=== PATIENT | female | born 1985 | race American Indian/Alaskan Native ===

== ENCOUNTER 2016-11-22 16:37 | Inpatient (IN) | payer BC ==
[2016-11-22 17:37] LABS: Basophils % (Auto) 0.6 % (0.0-1.8); Eosinophils % (Auto) 1.5 % (0.0-4.3); Hematocrit 32.8 % (30.3-42.9); Hemoglobin 10.4 gm/dl (10.1-14.3); Mean Corpuscular HGB Conc 32 % (30-34); Mean Corpuscular Hemoglobin 24 pg (28-32); Mean Corpuscular Volume 75 fl (79-97); Platelet Count 163 K/mm3 (140-440); Red Blood Count 4.37 M/mm3 (3.65-5.03); Red Cell Distribution Width 16.3 % (13.2-15.2); White Blood Count 7.8 K/mm3 (4.5-11.0)
--- NOTE | 2016-11-22 18:00 | Cat Scan Report ---
FINAL REPORT PROCEDURE: CT HEAD/BRAIN WO CON TECHNIQUE: Computerized tomography of the head was performed without contrast material. HISTORY: dizziness, weakness COMPARISON: No prior studies are available for comparison. FINDINGS: Brain: Brain density appears normal. No evidence of intracranial hemorrhage. No parenchymal hemorrhage, mass lesions or mass effect are seen. No abnormal extraxial fluid collects or masses are seen. Ventricles: Ventricles are normal size and are midline. Bone Windows: No evidence of skull fracture. Paranasal sinuses: Clear Mastoid air cells: Clear IMPRESSION: Negative exam.
[2016-11-22 18:01] LABS: Anion Gap 17 mmol/L; Blood Urea Nitrogen 9 mg/dL (7-17); Carbon Dioxide 25 mmol/L (22-30); Chloride 100.3 mmol/L (98-107); Glucose 87 mg/dL (65-100); Potassium 4.3 mmol/L (3.6-5.0); Sodium 138 mmol/L (137-145)
[2016-11-22] MEDS ORDERED: FIORICET PO ONE (22:05)
[2016-11-22] MEDS ORDERED: ASPIRIN PO ONE (22:05)
--- NOTE | 2016-11-22 22:13 | Emergency Department Report ---
HPI - General Chief Complaint: Weakness Time Seen by Provider: 11/22/16 21:56 - HPI HPI: Room 23 The patient is a 31-year-old female presenting with a chief complaint of dizziness and paresthesia. Patient states her symptoms began 2 days ago with dizziness causing her to feel off balance to the point where she had to hold onto the wall at times felt as though the tidwell was spinning. The patient states today she had 2 episodes of dysarthria lasting between one and 3 minutes. Yesterday the patient developed intermittent left facial and left upper extremity numbness. Patient plays of pressure in the back of her head. Patient went to an urgent care facility today where she was told her left wares sorter was weaker than the right and subsequently was sent to the ED Location: [see above] Duration: [see above] Quality: Dizziness, numbness Severity: Moderate Modifying factors: [see above] Context: [see above] Mode of transportation: [not driving] ED Past Medical Hx - Past Medical History Previous Medical History?: Yes Hx Asthma: Yes Additional medical history: bronchitis / aseptic meningitis - Surgical History Past Surgical History?: Yes Additional Surgical History: breast reduction 2003 - Family History Family history: no significant - Social History Smoking Status: Former Smoker (none 2.5 years) Substance Use Type: None (denies illicit drug use), Alcohol (occasional) - Medications Home Medications: Home Medications Medication Instructions Recorded Confirmed Last Taken Type No Known Home Medications [No 11/22/16 11/22/16 Unknown History Reported Home Medications] ED Review of Systems ROS: Stated complaint: URGENT CARE, POSSIBLE STROKE Other details as noted in HPI Comment: All other systems reviewed and negative Constitutional: denies: chills, fever Eyes: denies: eye pain, eye discharge, vision change ENT: denies: ear pain, throat pain Respiratory: denies: cough, shortness of breath, wheezing Cardiovascular: denies: chest pain, palpitations Endocrine: no symptoms reported Gastrointestinal: denies: abdominal pain, nausea, diarrhea Genitourinary: denies: urgency, dysuria, discharge Musculoskeletal: denies: back pain, joint swelling, arthralgia Skin: denies: rash, lesions Neurological: headache, paresthesias, vertigo Psychiatric: denies: anxiety, depression Hematological/Lymphatic: denies: easy bleeding, easy bruising Physical Exam - Physical Exam Vital Signs: Vital Signs 09/07/17 16:49 Temperature 98.5 F Pulse Rate 61 Respiratory 16 Rate Blood Pressure 149/94 O2 Sat by Pulse 100 Oximetry Physical Exam: GENERAL: The patient is well-developed well-nourished female lying on stretcher not appearing to be in acute distress. [] HEENT: Normocephalic. Atraumatic. Extraocular motions are intact. Patient has moist mucous membranes. No nystagmus noted NECK: Supple. Trachea midline CHEST/LUNGS: Clear to auscultation. There is no respiratory distress noted. HEART/CARDIOVASCULAR: Regular. There is no tachycardia. There is no gallop rub or murmur. ABDOMEN: Abdomen is soft, nontender. Patient has normal bowel sounds. There is no abdominal distention. SKIN: There is no rash. There is no edema. There is no diaphoresis. NEURO: The patient is awake, alert, and oriented. The patient is cooperative. Cranial nerves II through XII grossly intact, no drift. Left wares sorter 4+/5, right wares sorter 5+/5. Moves all extremity is well. The patient has normal speech MUSCULOSKELETAL: There is no evidence of acute injury. ED Course Vital Signs 11/22/16 16:49 Temperature 98.5 F Pulse Rate 61 Respiratory 16 Rate Blood Pressure 149/94 O2 Sat by Pulse 100 Oximetry ED Medical Decision Making - Lab Data Result diagrams: 11/22/16 17:21 11/22/16 17:21 Laboratory Tests 11/22/16 11/22/16 17:21 17:21 WBC 7.8 RBC 4.37 Hgb 10.4 Hct 32.8 MCV 75 L MCH 24 L MCHC 32 RDW 16.3 H Plt Count 163 Lymph % (Auto) 22.9 [place] % (Auto) 5.3 Eos % (Auto) 1.5 Baso % (Auto) 0.6 Lymph # 1.8 [place] # 0.4 Eos # 0.1 Baso # 0.0 Seg Neutrophils % 69.7 Seg Neutrophils # 5.4 Sodium 138 Potassium 4.3 Chloride 100.3 Carbon Dioxide 25 Anion Gap 17 BUN 9 Creatinine 0.6 L Estimated GFR > 60 BUN/Creatinine Ratio 15.00 Glucose 87 Calcium 9.0 - EKG Data -: EKG Interpreted by [place] EKG shows normal: sinus rhythm Rate: bradycardia (57 bpm) - EKG Data When compared to previous EKG there are: previous EKG unavailable - Radiology Data Radiology results: report reviewed (CT head), image reviewed (CT head) CT head (read by radiologist)-negative exam - Differential Diagnosis TIAs, complex migraines, CVA Critical care attestation.: If time is entered above; I have spent that time in minutes in the direct care of this critically ill patient, excluding procedure time. ED Disposition Clinical Impression: TIA (transient ischemic attack) Disposition: OP ADMIT IP TO THIS HOSP Is pt being admited?: Yes Does the pt Need Aspirin: Yes Condition: Fair Referrals: PRIMARY CARE, [Primary Care Provider] - 3-5 Days Time of Disposition: 22:19 (hospitalist notified)
[2016-11-22] MEDS ORDERED: MILK OF MAGNESIA PO PRN (23:29)
[2016-11-22] MEDS ORDERED: MORPHINE IV PRN (23:29)
[2016-11-22] MEDS ORDERED: ZOFRAN IV PRN (23:29)
[2016-11-22] MEDS ORDERED: ALUM-MAG HYDROX-SIMETH 200-200-20MG/5ML PO PRN (23:29)
[2016-11-22] MEDS ORDERED: PROVENTIL IH PRN (23:29)
[2016-11-22] MEDS ORDERED: NORCO 5/325 PO PRN (23:29)
[2016-11-22] MEDS ORDERED: TYLENOL PO PRN (23:29)
[2016-11-22] MEDS ORDERED: DULCOLAX PR PRN (23:29)
[2016-11-22] MEDS ORDERED: AMBIEN PO PRN (23:29)
--- NOTE | 2016-11-22 23:38 | History and Physical Report ---
History of Present Illness Date of examination: 11/22/16 Chief complaint: She did and slurred speech blurred vision and left-sided face and arm tingling numbness History of present illness: The patient is a 31-year-old female presenting with a chief complaint of dizziness and paresthesia. Patient states her symptoms began 2 days ago with dizziness causing her to feel off balance to the point where she had to hold onto the wall at times felt as though the tidwell was spinning. The patient states today she had 2 episodes of dysarthria lasting between one and 3 minutes. Yesterday the patient developed intermittent left facial and left upper extremity numbness. Patient plays of pressure in the back of her head. Patient went to an urgent care facility today where she was told her left dedicated owner operator was weaker than the right and subsequently was sent to the ED Past History Past Medical History: No medical history Past Surgical History: No surgical history Social history: no significant social history Family history: no significant family history Medications and Allergies Allergies Allergy/AdvReac Type Severity Reaction Status Date / Time No Known Allergies Allergy Verified 11/23/16 00:24 Home Medications Medication Instructions Recorded Confirmed Last Taken Type No Known Home Medications [No 11/22/16 11/22/16 Unknown History Reported Home Medications] Active Meds: Active Medications Acetaminophen (Tylenol) 650 mg PO Q4H PRN PRN Reason: Pain MILD(1-3)/Fever >100.5/BERG Acetaminophen/Butalbital/Caffeine (Fioricet) 1 tab PO Q4H PRN PRN Reason: Headache Acetaminophen/Hydrocodone Bitart (Banks 5/325) 2 each PO Q6H PRN PRN Reason: Pain, Moderate (4-6) Al Hydrox/Mg Hydrox/Simethicone (Alum-Mag Hydrox-Simeth [phone]/5ml) 30 ml PO Q4H PRN PRN Reason: Indigestion Albuterol (Proventil) 2.5 mg IH Q4HRT PRN PRN Reason: Shortness Of Breath Bisacodyl (Dulcolax) 10 mg NC QDAY PRN PRN Reason: Constipation unrelieved by MOM Enoxaparin Sodium (Lovenox) 40 mg SUB-Q QDAY CORIE Famotidine (Pepcid) 20 mg PO BID CORIE Sodium Chloride (Nacl 0.9% 1000 Ml) 1,000 mls @ 100 mls/hr IV DIRECT CORIE Magnesium Hydroxide (Milk Of Magnesia) 30 ml PO Q4H PRN PRN Reason: Constipation Morphine Sulfate (Morphine) 2 mg IV Q4H PRN PRN Reason: Pain, Moderate (4-6) Ondansetron HCl (Zofran) 4 mg IV Q8H PRN PRN Reason: N/V unrelieved by Reglan Zolpidem Tartrate (Ambien) 5 mg PO QHS PRN PRN Reason: Insomnia Review of Systems All systems: negative (all 14 systems reviewed and found to be negative except as mentioned in HPI) Exam - Physical Exam Narrative exam: GENERAL: The patient is well-developed well-nourished female lying on stretcher not appearing to be in acute distress. [] HEENT: Normocephalic. Atraumatic. Extraocular motions are intact. Patient has moist mucous membranes. No nystagmus noted NECK: Supple. Trachea midline CHEST/LUNGS: Clear to auscultation. There is no respiratory distress noted. HEART/CARDIOVASCULAR: Regular. There is no tachycardia. There is no gallop rub or murmur. ABDOMEN: Abdomen is soft, nontender. Patient has normal bowel sounds. There is no abdominal distention. SKIN: There is no rash. There is no edema. There is no diaphoresis. NEURO: The patient is awake, alert, and oriented. The patient is cooperative. Cranial nerves II through XII grossly intact, strength is 5 out of 5 all 4 extremities. Moves all extremity is well. The patient has normal speech MUSCULOSKELETAL: There is no evidence of acute injury. Psychiatric - appropriate. Mood and affect Vascular system - no lymphadenopathy distal pulses 2+ bilaterally - Constitutional Vitals: Temp Pulse Resp BP Pulse Ox 98.5 F 70 18 121/49 100 11/22/16 16:49 11/22/16 22:22 11/22/16 22:22 11/22/16 22:22 11/22/16 22:22 Results - Labs CBC & Chem 7: 11/22/16 17:21 11/22/16 17:21 Labs: Laboratory Last Values WBC 7.8 K/mm3 (4.5-11.0) 11/22/16 17:21 RBC 4.37 M/mm3 (3.65-5.03) 11/22/16 17:21 Hgb 10.4 gm/dl (10.1-14.3) 11/22/16 17:21 Hct 32.8 % (30.3-42.9) 11/22/16 17:21 MCV 75 fl (79-97) L 11/22/16 17:21 MCH 24 pg (28-32) L 11/22/16 17:21 MCHC 32 % (30-34) 11/22/16 17:21 RDW 16.3 % (13.2-15.2) H 11/22/16 17:21 Plt Count 163 K/mm3 (140-440) 11/22/16 17:21 Lymph % (Auto) 22.9 % (13.4-35.0) 11/22/16 17:21 [place] % (Auto) 5.3 % (0.0-7.3) 11/22/16 17:21 Eos % (Auto) 1.5 % (0.0-4.3) 11/22/16 17:21 Baso % (Auto) 0.6 % (0.0-1.8) 11/22/16 17:21 Lymph # 1.8 K/mm3 (1.2-5.4) 11/22/16 17:21 [place] # 0.4 K/mm3 (0.0-0.8) 11/22/16 17:21 Eos # 0.1 K/mm3 (0.0-0.4) 11/22/16 17:21 Baso # 0.0 K/mm3 (0.0-0.1) 11/22/16 17:21 Seg Neutrophils % 69.7 % (40.0-70.0) 11/22/16 17:21 Seg Neutrophils # 5.4 K/mm3 (1.8-7.7) 11/22/16 17:21 Sodium 138 mmol/L (137-145) 11/22/16 17:21 Potassium 4.3 mmol/L (3.6-5.0) 11/22/16 17:21 Chloride 100.3 mmol/L (98-107) 11/22/16 17:21 Carbon Dioxide 25 mmol/L (22-30) 11/22/16 17:21 Anion Gap 17 mmol/L 11/22/16 17:21 BUN 9 mg/dL (7-17) 11/22/16 17:21 Creatinine 0.6 mg/dL (0.7-1.2) L 11/22/16 17:21 Estimated GFR > 60 ml/min 11/22/16 17:21 BUN/Creatinine Ratio 15.00 % 11/22/16 17:21 Glucose 87 mg/dL (65-100) 11/22/16 17:21 Calcium 9.0 mg/dL (8.4-10.2) 11/22/16 17:21 Assessment and Plan Assessment and plan: Assessment and plan - * Left side and the tingling numbness weakness / paresthesias - rule out TIA * Complicated neurological migraine * Headache Plan - The patient to medical floor with telemetry for 24-hour observation When necessary Fioricet for her migraine Aspirin 325 mg daily Check lipid panel and TSH MRI brain to rule out TIA versus CVA Monitor CBC electrolytes replace electrolytes when necessary as per protocol DVT and GI Prophylaxis as ordered monitor and follow the patient closely VTE prophylaxis?: Chemical, Mechanical Plan of care discussed with patient/family: Yes
[2016-11-23] MEDS: NACL 0.9% 1000 ML 1,000 ML IV SCH ×2 (02:25→19:42)
[2016-11-23 07:26] LABS: Basophils % (Auto) 0.4 % (0.0-1.8); Eosinophils % (Auto) 2.3 % (0.0-4.3); Hematocrit 32.7 % (30.3-42.9); Hemoglobin 10.5 gm/dl (10.1-14.3); Mean Corpuscular HGB Conc 32 % (30-34); Mean Corpuscular Volume 74 fl (79-97); Platelet Count 140 K/mm3 (140-440); White Blood Count 5.7 K/mm3 (4.5-11.0)
[2016-11-23 07:37] LABS: Mean Corpuscular Hemoglobin 24 pg (28-32)
--- NOTE | 2016-11-23 08:38 | Admit Criteria Form ---
Admission Criteria Documentation: NEUROLOGY GRG Clinical Indications for Admission to Inpatient Care (Place ' X' for any and all applicable criteria): Hospital admission is needed for appropriate care of the patient because of 1 or more of the following: [ ]I. Encephalitis [ ]II. Severe DATA REDUCTION TECHNICIAN infections indicated by 1 or more of the following(1)(2)(3) : [ ]a) Intracranial abscess [ ]b) Spinal abscess or myelitis [ ]c) Tuberculous or other nonbacterial, nonviral DATA REDUCTION TECHNICIAN infection(8) [ ]III. Vasculitis and 1 or more of the following(14)(15): []a) Altered mental status that is severe or persistent or other acute neurologic change []b) Psychosis []c) Seizure [ ]IV. Status epilepticus or repetitive seizures not controlled with emergent treatment [A] (7)(8) [ ]V. Altered mental status that is severe or persistent [ ]. Transient alteration in consciousness with high-risk etiology; examples include (12)(13): [ ]a) Cardiovascular source [ ]b) Cataplexy [ ]VII. Cerebral aneurysm requiring ANY ONE of the following(14): [ ]a) IV antihypertensives or vasoactive agents [ ]b) Sedation and analgesia for suspected leak [ ]c) Need for external ventricular drainage and cerebral perfusion pressure monitoring [ ]d) Emergent evaluation to determine need for surgical clipping or endovascular coiling by interventional radiology. If surgery is required ( Also use Craniotomy, Supratentorial, for Surgery of Bleeding Intracranial Aneurysm (for bleeding aneurysm) or Craniotomy, Supratentorial (for nonbleeding aneurysm) as appropriate. [ ]VIII. New-onset severe neurologic symptom requiring inpatient care indicated by ANY ONE of the following: [ ]a) Aphasia(15) [ ]b) Weakness (grade 3 or less) [ ]c) Paralysis (eg, hemiplegia) [ ]d) Spasticity(16) [ ]e) Dystonia [ ]e) Ataxia(17) [ ]f) Amnesia(18) [ ]g) Involuntary movements(19) [ ]h) Vertigo [ ] Visual loss [ ]i) Other severe neurologic finding (eg, papilledema, mass effect on imaging, myoclonus not treatable at alternative level of care (eg, observation care) [ ]IX. Guillain-[place] syndrome(20) [ ]X. Myasthenia gravis crisis or inpatient monitoring need as indicated by 1 or more of the following(21): [ ]a) Intensive treatment (eg, course of plasmapheresis) with inadequate outpatient situation to monitor patients status [ ]b) Inadequate airway protection [ ]c) Respiratory insufficiency requiring intubation or inpatient. monitoring [ ]d) Progressive dysphagia with failure to thrive [ ]XI. Multiple sclerosis or other acute demyelinating disease requiring inpatient care as indicated by 1 or more of the following (22)(23): [ ]a) Acute severe deterioration requiring inpatient treatment (eg, IV steroids, plasmapheresis, close observation) [ ]b) Acute complication requiring inpatient care (eg, sepsis, severe decubitus, aspiration) [ ]XII.Parkinson disease requiring inpatient care (Also use Optimal Recovery Care Criteria or General Recovery Criteria as appropriate) indicated by 1 or more of the following(25): [ ]a) Infection (eg, aspiration pneumonia) not treatable at alternative level of care [ ]b Dehydration that is severe or persistent [ ]c) Life-threatening agitation or psychotic behavior not treatable on emergency, observation care, or alternative level (eg, residential) basis [ ]d) Severe medication withdrawal effects (eg, freezing, neuroleptic malignant syndrome) not responsive to emergency and observation care treatment ( as appropriate) [ ]e) Other severe manifestation not treatable at alternative level of care [ ]XII. Amyotrophic lateral sclerosis with inpatient care needs as indicated by ANY ONE of the following(26): [ ]a) Acute complications (eg, aspiration pneumonia, sepsis ) requiring inpatient care ( see other optimal Recovery Guideline as appropriate) [ ]b) Dehydration that is severe persistent AND artificial support desired [ ]c) Inadequate airway protection AND artificial support desired [ ]d) Severe ventilatory insufficiency AND artificial support desired [ ]XIII. Myasthenia gravis crisis or inpatient monitoring need as indicated by 1 or more of the following(21): [] a) Inadequate airway protection []b) Respiratory insufficiency requiring intubation or inpatient monitoring []c) Progressive dysphagia with failure to thrive []d) Intensive treatment (e.g., course of plasmapheresis) with inadequate outpatient situation to monitor patients status [ ]XIV. Multiple sclerosis or other acute demyelinating disease requiring inpatient care indicated by 1 or more of the following[C](36)(43)(44)(45)(46): []a) Acute severe deterioration requiring inpatient treatment (eg, IV steroids, plasmapheresis, close observation) []b) Acute complication requiring inpatient care (eg, sepsis, severe decubitus, aspiration) [ ]XV. Intracranial hypertension (e.g., pseudotumor cerebri) requiring inpatient care (e.g., acute visual loss, inadequate oral intake) (47)(48)(49) [ ]XVI. Parkinson disease requiring inpatient care (Also use Optimal Recovery Care Criteria or General Recovery Criteria as appropriate) indicated by 1 or more of the following(25): [] a) Infection (e.g., aspiration pneumonia) not treatable at alternative level of care []b) Volume depletion not responsive to emergency and observation care treatment (as appropriate) []c) Life-threatening agitation or psychotic behavior not treatable on emergency, observation care, or alternative level (e.g., residential) basis []d) Severe medication withdrawal effects (e.g., freezing, neuroleptic malignant syndrome) not responsive to emergency and observation care treatment (as appropriate) []e) Other severe manifestation not treatable at alternative level of care [ ]XVII. Amyotrophic lateral sclerosis with inpatient care needs as indicated by1 or more of the following(42): []a) Acute complications (eg, aspiration pneumonia, sepsis) requiring inpatient care (see other Optimal Recovery Guideline or General Recovery Guideline as appropriate) []b) Dehydration that is severe or persistent AND artificial support desired []c) Inadequate airway protection AND artificial support desired []d) Severe ventilatory insufficiency AND artificial support desired [ ]XVIII. Severe myopathy, neuropathy, or other neuromuscular disease indicated by 1 or more of the following(42)(52)(53)(54): []a ) New-onset severe diffuse weakness (eg, strength 3/5 or less) []b) Severe dysphagia []c) Dyspnea at rest or with minimal exertion (new) []d) Inadequate airway protection []e) Inadequate ventilation indicated by 1 or more of the following : i) Partial pressure of carbon dioxide greater than 44 mm Hg ( 5.9 kPa) (new) ii) Reduced peak expiratory flow rate (new) iii) Vital capacity less than 50% of predicted (less than 15 mL/kg) iv) Peak inspiratory force less negative than -30 cm H2O (- 2942 Pa) [ ]XVII.Complications of congenital or degenerative disease (eg, infection, seizures, dehydration, injury) not responsive to emergency and observation care treatment (as appropriate ) [C](16)(29)(30) [ ]XVIII.Suspected or confirmed nerve or muscle toxic injury, including ANY ONE of the following: [ ]a) Rhabdomyolysis(31) i) Acute renal failure ii) Dehydration that is severe or persistent iii) Altered mental status that is severe or persistent iv) Electrolyte abnormality that remains after emergency or observation level care ( as appropriate) [ ]b) Botulism(32) [ ]c) Other severe toxin-induced sign or symptom [ ]XIX. Neurologic trauma requiring inpatient treatment (medical) indicated by ANY ONE of the following(33)(34): [ ]a) Vital signs or neurologic signs more frequently than every 4 hours [ ]b) Hyperosmolar therapy [ ]c) Respiratory monitoring [ ]d) Intracranial pressure monitoring and treatment [ ]e) Stabilization and immobilization device placement (eg, braces, body jacket) [ ]f) Intubation & mechanical ventilation for airway protection or therapeutic hyperventilation [ ]g) Other treatment or monitoring needed that requires inpatient level of care [ ]XX.Complications of neurologic devices (eg, ventricular shunt, neurostimulator) requiring 1 or more of the following(35)(36): [ ]a) IV antibiotics with monitoring while awaiting culture results [ ]b) Monitoring for hydrocephalus [X]XXI. Neurology condition symptom, or finding for which emergency and observation care have failed or are not considered appropriate. See General Criteria: Observation Care ISC, General Admission Criteria GRG, or Pediatric General Admission Criteria GRG guideline as appropriate. The original [facility] content created by [facility] has been revised. The portions of the content which have been revised are identified through the use of italic text or in bold, and [facility] has neither reviewed nor approved the modified material. All other unmodified content is copyright [facility] Please see references footnoted in the original [facility] edition 2016 Admission Criteria Met: Yes
[2016-11-23] MEDS: ASPIRIN PO SCH (09:35)
[2016-11-23] MEDS: PEPCID PO SCH (09:36)
[2016-11-23] MEDS: LOVENOX SUB-Q SCH (09:36)
[2016-11-23 11:36] LABS: Alanine Aminotransferase 9 units/L (7-56); Albumin 3.7 g/dL (3.9-5); Albumin/Globulin Ratio 1.5 %; Alkaline Phosphatase 35 units/L (35-129); Anion Gap 16 mmol/L; BUN/Creatinine Ratio 13.33; Blood Urea Nitrogen 8 mg/dL (7-17); Calcium 8.5 mg/dL (8.4-10.2); Carbon Dioxide 25 mmol/L (22-30); Chloride 104.5 mmol/L (98-107); Glucose 82 mg/dL (65-100); Potassium 4.4 mmol/L (3.6-5.0); Sodium 141 mmol/L (137-145); Total Protein 6.2 g/dL (6.3-8.2)
[2016-11-23] MEDS ORDERED: XANAX PO PRN (11:44)
[2016-11-23] MEDS ORDERED: VALIUM PO PRN (11:44)
[2016-11-23] MEDS ORDERED: FLUOXETINE HCL 10 MG PO SCH (11:45)
--- NOTE | 2016-11-23 14:31 | Magnetic Resonance Report ---
MRI BRAIN WITHOUT CONTRAST INDICATION: Acute alerted mental status with dysphagia. Evaluate for CVA. COMPARISON: Yesterday's head CT. FINDINGS: Noncontrast multiplanar and multisequence MRI of the brain demonstrates normal ventricles and sulci without acute infarct, hemorrhage, mass effect or midline shift. No abnormal extra-axial masses or fluid collections. Normal major intracranial vascular flow voids. Normal posterior fossa structures with symmetric seventh and eighth nerve complexes. Symmetric, grossly unremarkable eye globes. Mild leftward nasal septal bowing. Slight ethmoid sinusitis. Clear remainder imaged paranasal sinuses and mastoid air cells. Normal midline structures without evidence of Chiari malformation. CONCLUSION: No acute intracranial MRI abnormality, as described. Thank you for the opportunity to participate in this patient's care.
--- NOTE | 2016-11-23 14:42 | Consultation ---
History of Present Illness Consult date: 11/23/16 Requesting physician: ALFRED ASTORGA Reason for Consult: TIA History of present illness: Neurology consultation note: 11/23/16 Ms. Reyes is a 31-year-old -Maltese female patient admitted sometime yesterday when she came to the hospital with a history of headaches and numbness of the left side of the face and the left arm as well as the right upper extremity. In addition she had also noted couple of episodes of altered speech and this prompted her to go to the emergency room for possible stroke. Neurology consultation requested to assess the situation. CT brain done in the emergency room was negative. This latency says that the problem began November 18 when she was attending a hindu ceremony and noted blurred vision in both eyes and had slight difficulty focusing with the eyes. She had this problem off and on with some dizziness for couple of days. 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 She is still went through her work as usual. Again she had slurred speech. Sometime yesterday for the first time she noted numb feeling in the left face and the left arm and the onset of headache in a generalized fashion. Occasionally she would have slight imbalance and vertigo. In the ER she was noted to have elevated blood pressure but otherwise she has no known prior history of hypertension. She never had such symptoms in her life before. No known prior history of migraines. No falls or trauma lately. She did have a mild fever about a week ago but resolved within 24 hours. Currently she denies any double vision but does have blurred vision and mild headache. Still feels tingly and numb in the left arm and occasionally in the right arm. She has no diabetes hypertension hyperlipidemia or heart disease. She quit smoking several years ago. No alcohol or street drug abuse. Family history significant for the fact that her mother, mother's sister and maternal grandmother all have migraines. Patient's older brother also has migraine. She has no known allergies since she has not been on any prescription medications at home. She denies being on control pills. Gen. exam: Blood pressure currently 116/80, no cranial or carotid bruit, no neck stiffness. No edema of the feet and dorsalis pedis palpable. No skin rash. Central nervous system exam: Higher cortical functions: Fully alert and well communicative right-handed person, normal speech memory and intelligence. No aphasia or dysarthria. Cranial nerves: Optic fundi not examined. Pupils 3 mm equal and reactive. Full eye movements, very questionable few beats of nystagmus on left lateral gaze only. No ptosis of the eyelids. No facial asymmetry or weakness, hearing completely normal. Tongue and palate normal. Motor system: Normal tone and strength all extremities except for a questionable minimal left arm drift and left supervisory lifeguard weakness. No involuntary movements. Gait appeared to be unremarkable. Sensory exam: Normal Reflexes: Bilaterally plus symmetrical and plantars downgoing. Impression: #1. This patient does have very subtle left arm drift along with subjective numb feeling in the left arm and blurred vision and headaches. While the entire history and clinical findings seem to favor "migraine syndrome", a right hemispheric small stroke or TIA should be excluded. I wonder if this is all "migrainous TIA" Or a "stroke mimic". Interestingly she does not have any prior history of migraines. Recommendation: MRI of the brain, MRA of the neck and brain, echocardiogram, carotid Doppler studies etc. Aspirin 81 mg daily if MRI conclusive for an acute infarct. Otherwise clinical observation for now. Patient may follow up with outpatient neurology after discharge. Thank you very much for this consultation Gideon Esparza M.D./ Neurology Past History Past Medical History: No medical history Past Surgical History: No surgical history Social history: no significant social history Family history: no significant family history Medications and Allergies Allergies Allergy/AdvReac Type Severity Reaction Status Date / Time No Known Allergies Allergy Verified 11/23/16 00:24 Home Medications Medication Instructions Recorded Confirmed Last Taken Type ALPRAZolam [Xanax TAB] 5 mg PO BID PRN 11/23/16 11/23/16 11/15/16 History 5 Diazepam Tab [Valium] 5 mg PO HS PRN 11/23/16 11/23/16 11/18/16 History FLUoxetine HCL [FLUoxetine] 10 mg PO BID 11/23/16 11/23/16 Unknown History Active Meds: Active Medications Acetaminophen (Tylenol) 650 mg PO Q4H PRN PRN Reason: Pain MILD(1-3)/Fever >100.5/BERG Acetaminophen/Butalbital/Caffeine (Fioricet) 1 tab PO Q4H PRN PRN Reason: Headache Acetaminophen/Hydrocodone Bitart (Newcomb 5/325) 2 each PO Q6H PRN PRN Reason: Pain, Moderate (4-6) Last Admin: 11/23/16 02:23 Dose: 2 each Al Hydrox/Mg Hydrox/Simethicone (Alum-Mag Hydrox-Simeth [phone]/5ml) 30 ml PO Q4H PRN PRN Reason: Indigestion Albuterol (Proventil) 2.5 mg IH Q4HRT PRN PRN Reason: Shortness Of Breath Alprazolam (Xanax) 5 mg PO BID PRN PRN Reason: Anxiety Aspirin (Aspirin) 325 mg PO QDAY [facility] Last Admin: 11/23/16 09:35 Dose: 325 mg Bisacodyl (Dulcolax) 10 mg IN QDAY PRN PRN Reason: Constipation unrelieved by MOM Diazepam (Valium) 5 mg PO HS PRN PRN Reason: Anxiety Enoxaparin Sodium (Lovenox) 40 mg SUB-Q QDAY [facility] Last Admin: 11/23/16 09:36 Dose: 40 mg Famotidine (Pepcid) 20 mg PO BID [facility] Last Admin: 11/23/16 09:36 Dose: 20 mg Fluoxetine HCl (Prozac) 10 mg PO BID [facility] Sodium Chloride (Nacl 0.9% 1000 Ml) 1,000 mls @ 100 mls/hr IV DIRECT [facility] Last Admin: 11/23/16 02:25 Dose: 100 mls/hr Magnesium Hydroxide (Milk Of Magnesia) 30 ml PO Q4H PRN PRN Reason: Constipation Morphine Sulfate (Morphine) 2 mg IV Q4H PRN PRN Reason: Pain, Moderate (4-6) Ondansetron HCl (Zofran) 4 mg IV Q8H PRN PRN Reason: N/V unrelieved by Reglan Zolpidem Tartrate (Ambien) 5 mg PO QHS PRN PRN Reason: Insomnia Last Admin: 11/23/16 02:24 Dose: 5 mg Physical Examination - Vital Signs Vital Signs: Vital Signs Temp Pulse Resp BP Pulse Ox 98.5 F 61 16 149/94 100 11/22/16 16:49 11/22/16 16:49 11/22/16 16:49 11/22/16 16:49 11/22/16 16:49 Results - Laboratory Findings CBC and BMP: 11/23/16 06:45 11/23/16 10:42 Abnormal Lab Findings: Abnormal Labs 11/23/16 11/23/16 06:45 10:42 MCV 74 L MCH 24 L RDW 16.0 H [place] % (Auto) 7.8 H Creatinine 0.6 L Total Protein 6.2 L Albumin 3.7 L
--- NOTE | 2016-11-23 14:53 | Discharge Summary ---
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 Time called:: 11:00 Primary care physician: LIAISON OFFICER Hospitalization Condition: Fair Hospital course: The patient is a 31-year-old female presenting with a chief complaint of dizziness and paresthesia. Patient states her symptoms began 2 days ago with dizziness causing her to feel off balance to the point where she had to hold onto the wall at times felt as though the tidwell was spinning. The patient states today she had 2 episodes of dysarthria lasting between one and 3 minutes. Yesterday the patient developed intermittent left facial and left upper extremity numbness. Patient plays of pressure in the back of her head. Patient went to an urgent care facility today where she was told her left conductor freight was weaker than the right and subsequently was sent to the ED 2d echo will be done as outpt Discharge Diagnosis: Left sided tingling numbness weakness/paresthesias - ruled out TIA Complicated neurological migraine Disposition: DC-01 TO HOME OR SELFCARE Time spent for discharge: 32 minutes Core Measure Documentation - Palliative Care Palliative Care/ Comfort Measures: Not Applicable - Core Measures Any of the following diagnoses?: none Exam - Constitutional Vitals: Temp Pulse Resp BP Pulse Ox 98.0 F 50 L 20 103/46 100 11/23/16 07:50 11/23/16 07:50 11/23/16 07:50 11/23/16 07:50 11/23/16 10:00 General appearance: Present: no acute distress, well-nourished - EENT Eyes: Present: PERRL ENT: hearing intact, clear oral mucosa - Neck Neck: Present: supple, normal ROM - Respiratory Respiratory effort: normal Respiratory: bilateral: CTA - Cardiovascular Heart Sounds: Present: S1 & S2. Absent: rub, click - Extremities Extremities: pulses symmetrical, No edema Peripheral Pulses: within normal limits - Abdominal General gastrointestinal: Present: soft, non-tender, non-distended, normal bowel sounds - Integumentary Integumentary: Present: clear, warm, dry - Musculoskeletal Musculoskeletal: gait normal, strength equal bilaterally - Psychiatric Psychiatric: appropriate mood/affect, intact judgment & insight - Neurologic Neurologic: CNII-XII intact, moves all extremities Plan Activity: advance as tolerated Weight Bearing Status: Weight Bear as Tolerated Diet: low fat, low salt Additional Instructions: f/u with neurology in one week Follow up with: PRIMARY CARE, [Primary Care Provider] - 3-5 Days Prescriptions: Butalb/Acetamin/Caff 50-325-40 [Fioricet] 1 tab PO Q4H PRN #14 tablet PRN Reason: Headache
[2016-11-23] MEDS: PROzac PO SCH (15:44)
[2016-11-23] MEDS: FIORICET PO PRN ×2 (15:44→19:42)
--- NOTE | 2016-11-23 16:14 | Progress Note ---
Assessment and Plan Left sided tingling numbness weakness/paresthesias - rule out TIA vs CVA - neurology following, recommended to continue stroke protocol - follow MRI/MRA/carotid doppler, 2decho Complicated neurological migraine - cont fiorecet for now - need further outpt follow up Dvt Px - on lovenox Obesity - counselled for diet and exercise Subjective Date of service: 11/23/16 Interval history: Pt seen and examined c/o headache with dizziness no vision change, no focal deficit now had MRI and result negative Objective - Constitutional Vitals: Vital Signs - 12hr 11/23/16 11/23/16 07:50 10:00 Temperature 98.0 F Pulse Rate 50 L Respiratory 20 Rate Blood Pressure 103/46 O2 Sat by Pulse 100 100 Oximetry General appearance: Present: no acute distress, well-nourished - EENT Eyes: PERRL, EOM intact ENT: hearing intact, clear oral mucosa Ears: bilateral: normal - Neck Neck: supple, normal ROM - Respiratory Respiratory effort: normal Respiratory: bilateral: CTA - Cardiovascular Rhythm: regular Heart Sounds: Present: S1 & S2. Absent: gallop, rub Extremities: pulses intact, No edema, normal color, Full ROM - Gastrointestinal General gastrointestinal: Present: soft, non-tender, non-distended, normal bowel sounds - Integumentary Integumentary: clear, warm, dry - Musculoskeletal Musculoskeletal: 1, strength equal bilaterally - Neurologic Neurologic: moves all extremities - Psychiatric Psychiatric: memory intact, appropriate mood/affect, intact judgment & insight - Labs CBC & Chem 7: 11/23/16 06:45 11/23/16 10:42 Labs: Abnormal lab results 11/23/16 11/23/16 Range/Units 06:45 10:42 MCV 74 L (79-97) fl MCH 24 L (28-32) pg RDW 16.0 H (13.2-15.2) % [place] % (Auto) 7.8 H (0.0-7.3) % Creatinine 0.6 L (0.7-1.2) mg/dL Total Protein 6.2 L (6.3-8.2) g/dL Albumin 3.7 L (3.9-5) g/dL - Imaging and cardiology CT Scan - head: report reviewed MRI - head: report reviewed
--- NOTE | 2016-11-23 18:08 | Magnetic Resonance Report ---
FINAL REPORT PROCEDURE: MR MRA/MRV HEAD WO CON MRA of the brain TECHNIQUE: Axial 3-D [id number] MR angiography of the redding of Seals and brain was performed. The source images were reconstructed in various views using maximum intensity projection. HISTORY: TIA, possible stroke COMPARISON: No prior studies are available for comparison. FINDINGS: Visualized portions of both vertebral arteries appear widely patent. The basilar artery also appears widely patent. There is persistent circulation of the posterior cerebral arteries, normal variant. Posterior cerebral arteries appear widely patent. The visualized portions of the internal carotid arteries including the carotid siphons appear widely patent. The A1 segments appear widely patent. On the reconstructed images there appears to be narrowing in the proximal end of the right A1 segment although not confirmed on the source images. The A1 segments appear to be widely patent. Anterior cerebral arteries middle cerebral arteries and their peripheral branches show no abnormalities. There are no changes that would suggest aneurysm or vascular malformation. IMPRESSION: Anterior and posterior circulation appear widely patent. No stenosis, occlusion, vascular malformation or aneurysm identified.
[2016-11-24] MEDS: PROzac PO SCH ×2 (00:35→10:37)
[2016-11-24] MEDS: PEPCID PO SCH ×2 (00:35→10:37)
[2016-11-24] MEDS: NACL 0.9% 1000 ML 1,000 ML IV SCH (06:36)
[2016-11-24] MEDS: LOVENOX SUB-Q SCH (10:37)
[2016-11-24] MEDS: ASPIRIN PO SCH (10:37)
[2016-11-24] MEDS ORDERED: Fluarix Quad 2017-2018(36 MOS+) IM ONE (16:57)
[2016-11-24] MEDS ORDERED: PNEUMOVAX 23 IM ONE (17:00)
[2016-11-24 17:04] VITALS: BP 124/74
--- NOTE | 2016-11-25 08:33 | Magnetic Resonance Report ---
FINAL REPORT EXAM: MR MRA/MRV NECK W CON HISTORY: TIA, possible stroke TECHNIQUE: MR neck angiogram is performed with and without contrast utilizing [id number] technique with transaxial source images and three-dimensional angiographic reconstructions provided PRIORS: CT brain 11/22/2016, conventional brain MRI and MR head angiogram 11/23/2016 FINDINGS: Anatomic variant common origin of the brachiocephalic and left common carotid arteries. The right common and internal carotid arteries are well opacified and normal in course and caliber. The left common and internal carotid arteries are well opacified and normal in course and caliber. On three-dimensional reconstructions there is focal signal loss near the origin of the left internal carotid artery, however no correlate is seen on postcontrast coronal reconstructions. Normal caliber, well opacified vertebral and basilar arteries. IMPRESSION: No significant stenosis or intraluminal abnormality involving the carotid or vertebral arteries. Focal signal loss near the origin of the left internal carotid artery seen only and three-dimensional reconstructions is favored to be artifactual. If there is persistent clinical concern for hemodynamically significant stenosis, CT neck angiogram or ultrasound could be performed for further evaluation as clinically warranted.
== END 2016-11-24 18:45 | disposition home or self-care (01) | DRG 103 ==
LOC: ED 16:37 → 3A 23:29
PROVIDERS: ADMIT Internal Medicine Geriatric Medicine; ATTEND Internal Medicine
PROC: 3E0234Z Introduction of Serum, Toxoid and Vaccine into Muscle, Percutaneous Approach (ICD-10-PCS; principal; 2016-11-24)
DX: G43.109 Migraine with aura, not intractable, without status migrainosus (principal); R20.8 Other disturbances of skin sensation; J45.909 Unspecified asthma, uncomplicated; E66.9 Obesity, unspecified; R47.1 Dysarthria and anarthria; Z72.89 Other problems related to lifestyle; Z87.891 Personal history of nicotine dependence; Z79.82 Long term (current) use of aspirin; Z71.3 Dietary counseling and surveillance; Z68.35 Body mass index [BMI] 35.0-35.9, adult; Z23 Encounter for immunization
CPT/HCPCS: 36415; 70450; 70544; 70548; 70551; 80048; 80053; 80061; 83036; 83880; 84443; 85025; 90686; 90732; 93005; 93010; 93306; 93880; A9577; J1650; J2405; J7030

== ENCOUNTER 2018-09-25 15:32 | Emergency (ER) | payer BC ==
[2018-09-25] MEDS ORDERED: ZOFRAN ODT PO ONE ×2 (15:48→16:42)
--- NOTE | 2018-09-25 15:48 | Event Note ---
ED Screening Note ED Screening Note: generalized body aches BERG N/V for 4 days no diarrhea +congestion no rhinorrhea cough with some mucus production states she is currently on her menstrual cycle PMHx bronchitis/asthma, migraines This initial assessment/diagnostic orders/clinical plan/treatment(s) is/are subject to change based on patients health status, clinical progression and re- assessment by fellow clinical providers in the ED. Further treatment and workup at subsequent clinical providers discretion. Patient/guardian urged not to elope from the ED as their condition may be serious if not clinically assessed and managed. Initial orders include: labs, UA, urine preg
[2018-09-25] MEDS ORDERED: ZOFRAN ODT ONE (15:51)
[2018-09-25 16:09] LABS: Basophils % (Auto) 0.4 % (0.0-1.8); Eosinophils % (Auto) 0.5 % (0.0-4.3); Hemoglobin 10.3 gm/dl (10.1-14.3); Lymphocytes # (Auto) 0.9 K/mm3 (1.2-5.4); Lymphocytes % (Auto) 20.4 % (13.4-35.0); Mean Corpuscular HGB Conc 32 % (30-34); Mean Corpuscular Volume 73 fl (79-97); Monocytes # (Auto) 0.4 K/mm3 (0.0-0.8); Monocytes % (Auto) 8.3 % (0.0-7.3); Platelet Count 170 K/mm3 (140-440); Red Blood Count 4.39 M/mm3 (3.65-5.03); Red Cell Distribution Width 17.1 % (13.2-15.2)
[2018-09-25 16:26] LABS: Alanine Aminotransferase 10 units/L (7-56); Albumin 4.3 g/dL (3.9-5); BUN/Creatinine Ratio 8; Blood Urea Nitrogen 8 mg/dL (7-17); Calcium 9.1 mg/dL (8.4-10.2); Hemolysis Index 1
[2018-09-25 17:36] LABS: HCG Qualitative,Urine Negative (Negative)
[2018-09-25 17:37] LABS: Bilirubin,Urine NEG (Negative); Blood,Urine MOD (Negative); Color,Urine Straw (Yellow); Mucus,Urine FEW /HPF; Protein,Urine <15 mg/dL mg/dL (Negative); Urobilinogen,Urine < 2.0 mg/dL (<2.0)
--- NOTE | 2018-09-25 18:24 | XRay Report ---
CHEST 2 VIEWS INDICATION / CLINICAL INFORMATION: cough. COMPARISON: None available. FINDINGS: SUPPORT DEVICES: None. HEART / MEDIASTINUM: No significant abnormality. LUNGS / PLEURA: No significant pulmonary or pleural abnormality. No pneumothorax. ADDITIONAL FINDINGS: No significant additional findings. IMPRESSION: 1. No acute findings. Signer Name: Fransico Jaimes MD Signed: 09/25/2018 6:20 PM Workstation Name: [id number]
[2018-09-25] MEDS ORDERED: NACL 0.9% 1000 ML 1,000 ML IV ONE (18:44)
[2018-09-25] MEDS ORDERED: BENADRYL IV STA (18:44)
[2018-09-25] MEDS ORDERED: LEVSIN SL SL ONE (18:44)
[2018-09-25] MEDS ORDERED: REGLAN IV STA (18:44)
[2018-09-25 20:20] VITALS: BP 141/75
--- NOTE | 2018-09-25 20:57 | Cat Scan Report ---
CT abdomen pelvis w con INDICATION: Lower ABD Pain. TECHNIQUE: All CT scans at this location are performed using CT dose reduction for ALARA by means of automated e xposure control. COMPARISON: None available. FINDINGS: Patchy parenchymal density in both lung bases, most likely atelectasis. Liver, gallbladder, spleen, p ancreas, kidneys and adrenals are negative. Abdominal aorta is normal in size. No adenopathy. Pelvis Large (12 cm) soft tissue mass in the pelvis appears to extend from the uterus. Smaller fibroids are demonstrated more inferiorly. Ovaries are thought to be identified and unremarkable. Small amount of free fluid in the cul-de-sac and right adnexa. Appendix is thought to be identified and unremarkable. No skeletal lesions. IMPRESSION: 1. 12 cm soft tissue mass in the pelvis. Since smaller fibroids are identified, and the ovaries are t hought to be seen, this most likely represents a large fibroid. However, I would suggest nonurgent gy necological follow-up to absolutely exclude a large ovarian mass. 2. Small amount of free fluid is probably physiologic. This too could be evaluated with gynecologic f ollow-up. Signer Name: Dre Burns MD Signed: 09/25/2018 8:53 PM Workstation Name: [id number]
[2018-09-25] MEDS ORDERED: PERCOCET 5/325 PO ONE (21:29)
[2018-09-25] MEDS ORDERED: TORADOL IV ONE (21:29)
[2018-09-25] MEDS ORDERED: REGLAN IV ONE (21:29)
[2018-09-25] MEDS ORDERED: REGLAN ONE (21:33)
[2018-09-25] MEDS ORDERED: PERCOCET 5/325 ONE (21:33)
[2018-09-25] MEDS ORDERED: TORADOL ONE (21:33)
--- NOTE | 2018-09-25 21:40 | Emergency Department Report ---
ED General Adult HPI - General Chief complaint: Nausea/Vomiting/Diarrhea Stated complaint: BODY ACHES/CRAMPS/COUGHING Time Seen by Provider: 09/25/18 15:45 Source: patient Mode of arrival: Ambulatory Limitations: No Limitations - History of Present Illness Initial comments: 33-year-old obese -Citizen Of [place] female. She was department, nausea, vomiting and diarrhea associated with coughing, body aches. After returning from [place] about a week and a half ago. She reports no hematemesis, hematochezia, no hematuria. Having her menstruation starting in her pain is crampy, achy sensation to the left lower abdomen region and over the suprapubic area reports no dysuria. She reports no polydipsia. No polyuria. No increased urgency or decreased urinary production, no rashes been appreciated. Gqjt-zon-qhalowo medications aches and pain to some extent has not helped to resolve the nausea. Or diarrhea -: Gradual Radiation: non-radiation Severity scale (0 -10): 4 Quality: burning, aching Improves with: none Worsens with: none Associated Symptoms: denies: confusion, cough, diaphoresis, loss of appetite, malaise, nausea/vomiting, seizure, shortness of breath, syncope, weakness - Related Data Home Medications Medication Instructions Recorded Confirmed Last Taken ALPRAZolam [Xanax TAB] 5 mg PO BID PRN 11/23/16 11/23/16 11/15/16 5 FLUoxetine HCL [FLUoxetine] 10 mg PO BID 11/23/16 11/23/16 Unknown diazePAM TAB [Valium] 5 mg PO HS PRN 11/23/16 11/23/16 11/18/16 Previous Rx's Medication Instructions Recorded Last Taken Type Butalb/Acetamin/Caff 50-325-40 1 tab PO Q4H PRN #14 tablet 11/23/16 Unknown Rx [Fioricet 50-325-40] Ciprofloxacin HCl [Ciprofloxacin 500 mg PO Q12HR #28 tab 09/25/18 Unknown Rx TAB] Hyoscyamine Subl [Levsin Sl] 0.125 mg SL Q4HR PRN #16 tablet 09/25/18 Unknown Rx Hyoscyamine Subl [Levsin Sl] 0.125 mg SL Q4HR PRN #16 tablet 09/25/18 Unknown Rx Ketorolac [Toradol] 10 mg PO Q6H PRN #15 tablet 09/25/18 Unknown Rx Ketorolac [Toradol] 10 mg PO Q6H PRN #15 tablet 09/25/18 Unknown Rx Ondansetron [Zofran ODT TAB] 8 mg PO Q12HR #14 tab.rapdis 09/25/18 Unknown Rx metroNIDAZOLE [Flagyl] 500 mg PO BID #10 tab 09/25/18 Unknown Rx Allergies Allergy/AdvReac Type Severity Reaction Status Date / Time No Known Allergies Allergy Verified 09/25/18 15:33 ED Review of Systems ROS: Stated complaint: BODY ACHES/CRAMPS/COUGHING Other details as noted in HPI Comment: All other systems reviewed and negative ED Past Medical Hx - Past Medical History Previous Medical History?: Yes Hx Congestive Heart Failure: No Hx Diabetes: No Hx Asthma: Yes Hx COPD: No Additional medical history: bronchitis / aseptic meningitis - Surgical History Past Surgical History?: Yes Hx Breast Surgery: Yes (reduction) Additional Surgical History: breast reduction 2003 - Social History Smoking Status: Never Smoker Substance Use Type: Alcohol - Medications Home Medications: Home Medications Medication Instructions Recorded Confirmed Last Taken Type ALPRAZolam [Xanax TAB] 5 mg PO BID PRN 11/23/16 11/23/16 11/15/16 History 5 Butalb/Acetamin/Caff 50-325-40 1 tab PO Q4H PRN #14 tablet 11/23/16 Unknown Rx [Fioricet 50-325-40] FLUoxetine HCL [FLUoxetine] 10 mg PO BID 11/23/16 11/23/16 Unknown History diazePAM TAB [Valium] 5 mg PO HS PRN 11/23/16 11/23/16 11/18/16 History Ciprofloxacin HCl [Ciprofloxacin 500 mg PO Q12HR #28 tab 09/25/18 Unknown Rx TAB] Hyoscyamine Subl [Levsin Sl] 0.125 mg SL Q4HR PRN #16 tablet 09/25/18 Unknown Rx Hyoscyamine Subl [Levsin Sl] 0.125 mg SL Q4HR PRN #16 tablet 09/25/18 Unknown Rx Ketorolac [Toradol] 10 mg PO Q6H PRN #15 tablet 09/25/18 Unknown Rx Ketorolac [Toradol] 10 mg PO Q6H PRN #15 tablet 09/25/18 Unknown Rx Ondansetron [Zofran ODT TAB] 8 mg PO Q12HR #14 tab.rapdis 09/25/18 Unknown Rx metroNIDAZOLE [Flagyl] 500 mg PO BID #10 tab 09/25/18 Unknown Rx ED Physical Exam - General Limitations: No Limitations General appearance: alert, in no apparent distress - Head Head exam: Present: atraumatic, normocephalic - Eye Eye exam: Present: normal appearance, PERRL, EOMI Pupils: Present: normal accommodation - ENT ENT exam: Present: normal exam, mucous membranes moist - Neck Neck exam: Present: normal inspection, full ROM - Respiratory Respiratory exam: Present: normal lung sounds bilaterally. Absent: respiratory distress, wheezes, rales, chest wall tenderness, accessory muscle use, decreased breath sounds - Cardiovascular Cardiovascular Exam: Present: regular rate, normal rhythm. Absent: systolic murmur, diastolic murmur, rubs, gallop - GI/Abdominal GI/Abdominal exam: Present: soft, tenderness, normal bowel sounds, other (no McBurney's tenderness. No Mckeon sign, no Rovsing, no Mart Ferrara no Reji sign). Absent: guarding, rigid, hyperactive bowel sounds, hypoactive bowel sounds, organomegaly, mass, bruit, pulsatile mass - Extremities Exam Extremities exam: Present: normal inspection, full ROM, normal capillary refill. Absent: pedal edema - Back Exam Back exam: Present: normal inspection. Absent: CVA tenderness (R), CVA tenderness (L), paraspinal tenderness - Neurological Exam Neurological exam: Present: alert, oriented X3, CN II-XII intact - Psychiatric Psychiatric exam: Present: normal affect, normal mood - Skin Skin exam: Present: warm, dry, intact, normal color. Absent: rash, cyanosis, diaphoretic, erythema ED Course Vital Signs 09/25/18 09/25/18 15:45 20:19 Temperature 99.1 F 98.3 F Pulse Rate 104 H 78 Respiratory 20 16 Rate Blood Pressure 171/92 141/75 [Right] O2 Sat by Pulse 98 98 Oximetry ED Medical Decision Making - Lab Data Result diagrams: 09/25/18 15:59 09/25/18 15:59 - Radiology Data Radiology results: report reviewed Uterine fibroids noted. Possible left ovarian mass - Medical Decision Making 34-year-old female status post trip to [place] with residual nausea, vomiting and diarrhea. Have some type of gastroenteritis or a food poisoning. Also was found to have some fibroids on on her CT scan with a likelihood of an ovarian mass of an unknown etiology. Follow-up with SENIOR PRODUCTION MANAGER for reevaluation. Diarrhea is not bloody, but has been going on for over 4-5 days is reason will move 4 with an intact microbials therapy to eradicate possible pathogens. - Differential Diagnosis gastroenteritis, food poisoning, diverticulitis, Critical care attestation.: If time is entered above; I have spent that time in minutes in the direct care of this critically ill patient, excluding procedure time. ED Disposition Clinical Impression: Gastroenteritis Disposition: DC-01 TO HOME OR SELFCARE Is pt being admited?: No Does the pt Need Aspirin: No Condition: Stable Instructions: Acute Nausea and Vomiting (ED), Gastroenteritis (ED), Food Poisoning (ED), Infectious Colitis (ED), Traveler's Diarrhea (ED) Prescriptions: Hyoscyamine Subl [Levsin Sl] 0.125 mg SL Q4HR PRN #16 tablet PRN Reason: Spasms Ketorolac [Toradol] 10 mg PO Q6H PRN #15 tablet PRN Reason: Pain Ondansetron [Zofran ODT TAB] 8 mg PO Q12HR #14 tab.rapdis Referrals: JAZZ ARMENTA MD [Primary Care Provider] - 3-5 Days [facility] [Provider Group] - 3-5 Days
== END 2018-09-25 22:20 | disposition home or self-care (01) ==
LOC: ED 15:32
DX: K52.9 Noninfective gastroenteritis and colitis, unspecified (principal); R05 Cough; J45.909 Unspecified asthma, uncomplicated; Z79.899 Other long term (current) drug therapy
CPT/HCPCS: 36415; 71046; 74177; 80053; 81001; 81025; 83690; 85025; 96361; 96374; 96375; 96376; 99284; J1200; J1885; J2765; J7030; Q9967; Q0162

== ENCOUNTER 2019-03-15 19:56 | Emergency (ER) | payer BC ==
[2019-03-15 20:24] VITALS: BP 121/69
== END 2019-03-15 20:25 | disposition left against medical advice (07) ==
LOC: ED 19:56
DX: Z53.21 Procedure and treatment not carried out due to patient leaving prior to being seen by health care provider (principal)

== ENCOUNTER 2019-08-31 10:28 | Inpatient (IN) | payer BC ==
[2019-08-31] MEDS ORDERED: ONDANSETRON 4 MG/2 ML INJ IV PRN (10:29)
[2019-08-31] MEDS ORDERED: D5LR IV SCH (11:00)
[2019-08-31] MEDS ORDERED: MULTIPLE VITAMIN IV SCH ×2 (11:00→11:45)
[2019-08-31] MEDS ORDERED: KCL IV SCH (11:00)
[2019-08-31] MEDS ORDERED: D5W/LACTATED RINGERS 1,000 ML IV SCH ×2 (11:00)
[2019-08-31] MEDS ORDERED: [UNRECOGNIZED DRUG - OTHER] IV SCH (11:45)
[2019-08-31] MEDS ORDERED: POTASSIUM CHLORIDE IV SCH (11:45)
[2019-08-31] MEDS: PROMETHAZINE 25 MG RECT SUPP PR SCH ×2 (13:34→20:42)
[2019-08-31] MEDS: METOCLOPRAMIDE 10 MG/2 ML INJ IV SCH ×2 (13:34→20:42)
--- NOTE | 2019-08-31 14:26 | History and Physical Report ---
History of Present Illness Date of examination: 08/31/19 Date of admission: 08/31/19 12:04 Chief complaint: nausea and vomiting History of present illness: Pt is a 34 year old LMP 06/26/19 at 8w2d by LMP presents with severe nausea and vomiting despite PO Phenergan at home. She had an episode of emesis while in the office today and reports that eating food and even drinking water can trigger emesis. She was scheduled for her a new visit today, but appeared too ill and was sent to the hospital instead. Past History Past Medical History: asthma Past Surgical History: breast surgery (breast reduction ), [employer]AD History: chlamydia (remote history ), fibroids (large, right-sided fibroid per pt ) Family/Genetic History: diabetes, heart disease, cancer Social history: no significant social history - Obstetrical History Expected Date of Delivery: 04/09/20 Actual Gestation: 8 Week(s) 2 Day(s) : 2 Para: 0 Hx # Term Pregnancies: 0 Number of Pregnancies: 0 Spontaneous Abortions: 0 Induced : 1 Number of Living Children: 0 Medications and Allergies Allergies Allergy/AdvReac Type Severity Reaction Status Date / Time No Known Allergies Allergy Verified 09/25/18 15:33 Home Medications Medication Instructions Recorded Confirmed Last Taken Type ALPRAZolam [Xanax TAB] 5 mg PO BID PRN 11/23/16 11/23/16 11/15/16 History 5 Butalb/Acetamin/Caff 50-325-40 1 tab PO Q4H PRN #14 tablet 11/23/16 Unknown Rx [Fioricet 50-325-40] FLUoxetine HCL [FLUoxetine] 10 mg PO BID 11/23/16 11/23/16 Unknown History diazePAM TAB [Valium] 5 mg PO HS PRN 11/23/16 11/23/16 11/18/16 History Ciprofloxacin HCl [Ciprofloxacin 500 mg PO Q12HR #28 tab 09/25/18 Unknown Rx TAB] Hyoscyamine Subl [Levsin Sl] 0.125 mg SL Q4HR PRN #16 tablet 09/25/18 Unknown Rx Hyoscyamine Subl [Levsin Sl] 0.125 mg SL Q4HR PRN #16 tablet 09/25/18 Unknown Rx Ketorolac [Toradol] 10 mg PO Q6H PRN #15 tablet 09/25/18 Unknown Rx Ketorolac [Toradol] 10 mg PO Q6H PRN #15 tablet 09/25/18 Unknown Rx Ondansetron [Zofran ODT TAB] 8 mg PO Q12HR #14 tab.rapdis 09/25/18 Unknown Rx metroNIDAZOLE [Flagyl] 500 mg PO BID #10 tab 09/25/18 Unknown Rx Active Meds: Active Medications Dextrose/Lactated Ringer's (D5lr) 1,000 mls @ 500 mls/hr IV DIRECT CORIE Stop: 09/01/19 12:59 Last Admin: 08/31/19 13:34 Dose: 500 mls/hr Documented by: Dextrose/Lactated Ringer's (D5lr) 1,000 mls @ 150 mls/hr IV DIRECT CORIE Potassium Chloride 20 meq/Multivitamins/Minerals 10 ml/Dextrose/Lactated Ringer's 1,020 mls @ 150 mls/hr IV DIRECT CORIE Stop: 08/31/19 18:32 Metoclopramide HCl (Reglan) 10 mg IV Q6H CORIE Last Admin: 08/31/19 13:34 Dose: 10 mg Documented by: Multivitamins/Iron/Calcium ( Vitamin) 1 each PO QDAY CORIE Ondansetron HCl (Zofran) 4 mg IV Q6H PRN PRN Reason: N/V unrelieved by Reglan Promethazine HCl (Phenergan) 25 mg UT Q6H CORIE Last Admin: 08/31/19 13:34 Dose: 25 mg Documented by: Review of Systems All systems: negative Gastrointestinal: abdominal pain, nausea, vomiting, no diarrhea Rectal Exam: deferred - Vital Signs Vital signs: Vital Signs Pulse Pulse Ox 61 100 08/31/19 13:04 08/31/19 13:04 Temp Pulse Resp BP Pulse Ox 98.5 F 62 16 138/82 100 08/31/19 13:10 08/31/19 13:10 08/31/19 13:10 08/31/19 13:10 08/31/19 13:10 - Physical Exam Breasts: Positive: deferred Abdomen: Positive: soft Extremities: Positive: normal Results All other labs normal. Assessment and Plan A: IUP at 8w2d Hyperemesis Fibroid Uterus Asthma P: Admit to antepartum service IV hydration Check electrolyte status and replete as indicated Viability sono Antiemetics PRN
[2019-08-31 14:59] LABS: BUN/Creatinine Ratio 10; Blood Urea Nitrogen 6 mg/dL (7-17); Calcium 9.4 mg/dL (8.4-10.2); Hemolysis Index 8
[2019-08-31 15:02] LABS: Hepatitis B Surface Antigen Non-Reactive (Negative); Hepatitis C Virus Antibody Non-Reactive (NonReactive)
[2019-08-31 17:04] LABS: Bilirubin,Urine NEG (Negative); Blood,Urine NEG (Negative); Color,Urine Yellow (Yellow); Mucus,Urine 3+ /HPF; Protein,Urine <15 mg/dL mg/dL (Negative); Urobilinogen,Urine < 2.0 mg/dL (<2.0)
[2019-08-31] MEDS: POTASSIUM CHLORIDE 10 MEQ 10 MEQ/100 ML BAG IV SCH ×2 (17:44→17:45)
[2019-08-31] MEDS: D5W/LACTATED RINGERS 1,000 ML IV SCH (20:42)
[2019-08-31] MEDS: ACETAMINOPHEN 325 MG TAB PO PRN (21:19)
--- NOTE | 2019-08-31 22:03 | Ultrasound Report ---
OB ultrasound FINDINGS: There is a viable intrauterine with crown-rump length measurements corresponding to an MA of 9 weeks 5 days for an EDC of 03/30/2020. This correlates with the clinical dates. he art rate is 173 bpm. There is a small amount of subchorionic hemorrhage not considered significant. B oth ovaries appear normal. There are multiple uterine fibroids however measuring up to [address] No free fluid is seen. IMPRESSION: Fibroid uterus with a viable 9 week 5 day IUP Signer Name: eDnis Becerra MD Signed: 08/31/2019 9:58 PM Workstation Name: [id number]
[2019-09-01] MEDS: METOCLOPRAMIDE 10 MG/2 ML INJ IV SCH ×3 (03:22→17:15)
[2019-09-01] MEDS: PROMETHAZINE 25 MG RECT SUPP PR SCH ×3 (03:23→17:16)
[2019-09-01] MEDS: D5W/LACTATED RINGERS 1,000 ML IV SCH ×2 (06:10→14:47)
[2019-09-01] MEDS: ACETAMINOPHEN 325 MG TAB PO PRN (09:22)
[2019-09-01] MEDS ORDERED: PRENATAL VIT27-FE FUMARATE-FOLIC ACID VIT TAB PO SCH (10:00)
--- NOTE | 2019-09-01 18:43 | Progress Note ---
Assessment and Plan - Patient Problems (1) Nausea and vomiting during Current Visit: Yes Status: Acute Plan to address problem: Patient clinically improved Discharge home Subjective - Subjective Date of service: 09/01/19 Interval history: Patient reports doing well. She has been tolerating a regular diet. She has not had any further emesis today. Patient reports: no new complaints Objective - Vital Signs Vital Signs: Vital Signs - 12hr 09/01/19 09/01/19 09/01/19 07:40 08:55 09:22 Temperature 98.2 F Pulse Rate 66 Respiratory 18 18 18 Rate Blood Pressure 112/42 [Left] 09/01/19 09/01/19 12:09 16:25 Temperature 98.2 F 98.7 F Pulse Rate 69 69 Respiratory 18 20 Rate Blood Pressure 112/62 114/57 [Left] - Labs Labs: Abnormal Labs 08/31/19 14:17 Carbon Dioxide 21 L BUN 6 L Creatinine 0.6 L Laboratory Results - last 24 hr 09/01/19 03:00 Urine Ketones 20
--- NOTE | 2019-09-01 18:45 | Discharge Summary ---
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 She received IV antiemetic therapy with significant im provement in her clinical symptoms. At the time of discharge the patient was tolerating regular diet. Condition at discharge: Good Disposition: DC-01 TO HOME OR SELFCARE - Discharge Diagnoses (1) Nausea and vomiting during Status: Acute Plan - Discharge Medications Prescriptions: Ondansetron [Zofran Odt] 4 mg PO Q8HR #20 tab.rapdis - Provider Discharge Summary Diet: routine Instructions: routine Additional instructions: [] Smoking cessation referral if applicable(refer to patient education folder for contact #) [] Refer to [facility] Booklet Call your doctor immediately for: * Fever > 100.5 * Heavy vaginal bleeding ( >1 pad per hour) * Severe persistent headache * Shortness of breath * Reddened, hot, painful area to leg or breast * Schedule OB visit in 1 to 2 weeks - Follow up plan
[2019-09-01 20:51] VITALS: BP 114/56
== END 2019-09-01 21:03 | disposition home or self-care (01) | DRG 833 ==
LOC: UNDOADMIN 10:28 → 3A 10:28 → OB 12:04
PROVIDERS: ADMIT Obstetrics & Gynecology; ATTEND Obstetrics & Gynecology
DX: O21.0 Mild hyperemesis gravidarum (principal); J45.909 Unspecified asthma, uncomplicated; D25.9 Leiomyoma of uterus, unspecified; O34.11 Maternal care for benign tumor of corpus uteri, first trimester; O99.511 Diseases of the respiratory system complicating pregnancy, first trimester; Z82.49 Family history of ischemic heart disease and other diseases of the circulatory system; Z3A.09 9 weeks gestation of pregnancy; Z83.3 Family history of diabetes mellitus
CPT/HCPCS: 36415; 76801; 80048; 80074; 81001; 82010; 82150; 83690; 84443; G0378; J2405; J2765; J3480; J7121

== ENCOUNTER 2019-10-02 14:49 | Observation (INO) | payer BC ==
[2019-10-02 17:32] LABS: Bacteria,Urine 1+ /HPF (Negative); Bilirubin,Urine NEG (Negative); Blood,Urine SM (Negative); Color,Urine Yellow (Yellow); Mucus,Urine 2+ /HPF
[2019-10-02] MEDS ORDERED: SODIUM CHLORIDE 0.9% 1000 ML 1,000 ML IV ONE ×3 (20:16→23:29)
--- NOTE | 2019-10-02 20:18 | Emergency Department Report ---
Vomiting/Diarrhea <DONYJEWELARLIN SANDYRICHI Duarte - Last Filed: 10/02/19 23:57> - HPI Duration: 4 weeks Severity: severe Nausea/Vomiting Severity: Severe Diarrhea Severity: None Pain Location: Generalized Pain Severity: Mild Symptoms: No Able to Tolerate Fluids, No Recent Unusual Foods, No Recent Untreated Water, No Recent use of Antibiotics, No Rash, No Hematuria, No Recent URI Symptoms Other History: 34-year-old -[place] female presents to the emergency room for nausea vomiting for 4 weeks. Patient also reports she is constipated and having acid reflux. Patient states that she is 14 weeks . She is currently on a Zofran pump. Her last menstrual period was June 26, 2019. She is 2 para 0 with 1 . 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 <SUSIEKENJI' M - Last Filed: 10/03/19 19:42> - HPI Chief Complaint: Abdominal Pain Stated Complaint: WEAK/V/N/CANT EAT ED Review of Systems ROS: Stated complaint: WEAK/V/N/CANT EAT Other details as noted in HPI <CECIL DELGADORICHI Duarte - Last Filed: 10/02/19 23:57> ROS: Stated complaint: WEAK/V/N/CANT EAT Other details as noted in HPI Comment: All other systems reviewed and negative <SUKI RICHARDS - Last Filed: 10/03/19 19:42> ED Past Medical Hx <DONYJEWELARLIN SANDYRICHI Duarte - Last Filed: 10/02/19 23:57> - Past Medical History Previous Medical History?: Yes Hx Congestive Heart Failure: No Hx Diabetes: No Hx Asthma: Yes Hx COPD: No Hx HIV: No Additional medical history: bronchitis / aseptic meningitis - Surgical History Past Surgical History?: Yes Hx Breast Surgery: Yes (reduction) Additional Surgical History: breast reduction 2003 - Social History Smoking Status: Never Smoker Substance Use Type: None <SUKI RICHARDS - Last Filed: 10/03/19 19:42> - Medications Home Medications: Home Medications Medication Instructions Recorded Confirmed Last Taken Type Ondansetron [Zofran ODT TAB] 8 mg PO Q12HR #14 tab.rapdis 09/25/18 10/03/19 Unknown Rx Ondansetron [Zofran Odt] 4 mg PO Q8HR #20 tab.rapdis 09/01/19 10/03/19 Unknown Rx Acetaminophen [Tylenol] 500 mg PO Q6HR PRN #30 tablet 09/21/19 10/03/19 Unknown Rx Promethazine [Phenergan] 25 mg PO Q6HR PRN #30 tab 09/21/19 10/03/19 Unknown Rx Promethazine [Phenergan] 25 mg [place] Q6HR PRN #15 supp.rect 09/21/19 10/03/19 Unknown Rx Vomiting Diarrhea Exam - Exam General: Vital signs noted. No distress. Alert and acting appropriately. Neurologic: Alert and oriented, no deficits. Musculoskeletal: Unremarkable. <RICHI JACOB III - Last Filed: 10/02/19 23:57> - Exam General: Vital signs noted. No distress. Alert and acting appropriately. HEENT: No Pharyngeal Erythema, No Pharyngeal Exudates, No Moist Mucous Membranes Neck: No Adenopathy, No Rigidity Lungs: Yes Clear Lung Sounds, Yes Good Air Exchange, No Wheezes, No Stridor, No Cough, No Nasal Flaring, No Retractions, No Use of Accessory Muscles Heart exam: Tachycardia: Yes Abdomen: Tenderness: No, Peritoneal Signs: No, Distention: No, Hyperactive Bowel sounds: No Skin exam: Rash: No, Edema: No, Normal turgor: No Neurologic: Alert and oriented, no deficits. Musculoskeletal: Unremarkable. <SUKI RICHARDS - Last Filed: 10/03/19 19:42> ED Course Vital Signs 10/02/19 10/02/19 15:11 20:34 Temperature 98.2 F 98.9 F Pulse Rate 86 71 Respiratory 16 14 Rate Blood Pressure 119/72 124/71 O2 Sat by Pulse 96 98 Oximetry - Reevaluation(s) Reevaluation #1: I discussed all results with patient. I discussed plan of care with patient. Patient agrees with plan of care and admission. Patient to be admitted to the O B/AUDIO SPECIALIST service. 10/02/19 23:57 - Consultations Consultation #1: I discussed case with Dr. Frazier, general surgery. Dr. Frazier recommends NG tube placement and admission. Consult will be placed for general surgery. 10/02/19 23:57 <RICHI JACOB III - Last Filed: 10/02/19 23:57> Vital Signs 10/02/19 15:11 Temperature 98.2 F Pulse Rate 86 Respiratory 16 Rate Blood Pressure 119/72 O2 Sat by Pulse 96 Oximetry <SUSIEKENJI' M - Last Filed: 10/03/19 19:42> ED Medical Decision Making - Lab Data Result diagrams: 10/02/19 20:33 10/02/19 20:33 <RICHI JACOB III - Last Filed: 10/02/19 23:57> - Lab Data Result diagrams: 10/02/19 20:33 10/02/19 20:33 - Medical Decision Making 34-year-old -[place] female presents to the emergency room for nausea vomiting for 4 weeks. Patient also reports she is constipated and having acid reflux. Patient states that she is 14 weeks . She is currently on a Zofran pump. Her last menstrual period was June 26, 2019. She is 2 para 0 with 1 . 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 <SUKI RICHARDS - Last Filed: 10/03/19 19:42> Critical care attestation.: If time is entered above; I have spent that time in minutes in the direct care of this critically ill patient, excluding procedure time. <RICHI JACOB III - Last Filed: 10/02/19 23:57> Critical care attestation.: If time is entered above; I have spent that time in minutes in the direct care of this critically ill patient, excluding procedure time. <SUKI RICHARDS - Last Filed: 10/03/19 19:42> ED Disposition <RICHI JACOB III - Last Filed: 10/02/19 23:57> Is pt being admited?: Yes Does the pt Need Aspirin: No <SUKI RICHARDS - Last Filed: 10/03/19 19:42> Clinical Impression: Hyperemesis gravidarum Disposition: OP ADMIT IP TO THIS HOSP Condition: Stable
[2019-10-02 20:52] LABS: Basophils % (Auto) 0.2 % (0.0-1.8); Eosinophils % (Auto) 0.1 % (0.0-4.3); Hematocrit 31.7 % (30.3-42.9); Lymphocytes # (Auto) 0.6 K/mm3 (1.2-5.4); Lymphocytes % (Auto) 5.8 % (13.4-35.0); Mean Corpuscular HGB Conc 32 % (30-34); Mean Corpuscular Volume 75 fl (79-97); Monocytes # (Auto) 0.8 K/mm3 (0.0-0.8); Monocytes % (Auto) 7.6 % (0.0-7.3); Platelet Count 232 K/mm3 (140-440); Red Blood Count 4.25 M/mm3 (3.65-5.03); Red Cell Distribution Width 17.5 % (13.2-15.2)
[2019-10-02 21:10] LABS: BUN/Creatinine Ratio 16; Blood Urea Nitrogen 13 mg/dL (7-17); Calcium 10.1 mg/dL (8.4-10.2); Hemolysis Index 15
[2019-10-02 21:14] LABS: Alanine Aminotransferase < 5 units/L (7-56)
--- NOTE | 2019-10-02 22:54 | Ultrasound Report ---
ULTRASOUND ABDOMEN, LIMITED (RIGHT UPPER QUADRANT) INDICATION: Nausea and vomiting. COMPARISON: None available. FINDINGS: PANCREAS: Not well seen. LIVER: No significant abnormality. GALLBLADDER: No significant abnormality. BILE DUCTS: No significant abnormality. Common bile duct measures 3.4 mm. FREE FLUID: None. ADDITIONAL FINDINGS: Large uterine fibroid extending into the upper abdomen, measuring 13.4 cm in gre atest dimension. IMPRESSION: 1. Large uterine fibroid extending into the upper abdomen. 2. No evidence of gallstones. Signer Name: Mina Pedro MD Signed: 10/02/2019 10:49 PM Workstation Name: [id number]
[2019-10-03] MEDS ORDERED: D5W/LACTATED RINGERS 1,000 ML IV SCH (07:00)
--- NOTE | 2019-10-03 13:18 | History and Physical Report ---
History of Present Illness Date of examination: 10/03/19 Date of admission: 10/03/19 03:10 Chief complaint: Nausea vomiting History of present illness: 34y/o @ 14 weeks with hyperemesis. The patient currently has a Zofran pump but noticed worsening of her symptoms. She also complains of chronic constipation and denies having an active bowel movement over the last 2 weeks. The patient's course is also complicated by uterine fibroids. Denies any vaginal bleeding or any leakage of fluid. The patient reports fatigue and malaise. 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 Social history: single - Obstetrical History : 2 Para: 0 Hx # Term Pregnancies: 0 Number of Pregnancies: 0 Spontaneous Abortions: 1 Induced : 0 Number of Living Children: 0 Medications and Allergies Allergies Allergy/AdvReac Type Severity Reaction Status Date / Time No Known Allergies Allergy Verified 09/25/18 15:33 Home Medications Medication Instructions Recorded Confirmed Last Taken Type Ondansetron [Zofran ODT TAB] 8 mg PO Q12HR #14 tab.rapdis 09/25/18 10/03/19 Unknown Rx Ondansetron [Zofran Odt] 4 mg PO Q8HR #20 tab.rapdis 09/01/19 10/03/19 Unknown Rx Acetaminophen [Tylenol] 500 mg PO Q6HR PRN #30 tablet 09/21/19 10/03/19 Unknown Rx Promethazine [Phenergan] 25 mg PO Q6HR PRN #30 tab 09/21/19 10/03/19 Unknown Rx Promethazine [Phenergan] 25 mg [place] Q6HR PRN #15 supp.rect 09/21/19 10/03/19 Unknown Rx Active Meds: Active Medications Hydrocortisone Sodium Succinate (Solu-Cortef) 100 mg IV Q8HR CORIE Dextrose/Lactated Ringer's (D5lr) 1,000 mls @ 125 mls/hr IV DIRECT CORIE Last Admin: 10/03/19 07:03 Dose: 125 mls/hr Documented by: Review of Systems Constitutional: weight loss, anorexia, malaise Gastrointestinal: abdominal pain, nausea, vomiting, constipation - Vital Signs Vital signs: Vital Signs Temp Pulse Resp BP Pulse Ox 98.2 F 86 16 119/72 96 10/02/19 15:11 10/02/19 15:11 10/02/19 15:11 10/02/19 15:11 10/02/19 15:11 Temp Pulse Resp BP Pulse Ox 97.6 F 83 18 143/72 100 10/03/19 08:20 10/03/19 08:20 10/03/19 08:20 10/03/19 08:20 10/03/19 08:20 - Physical Exam Breasts: Positive: deferred Abdomen: Positive: other (central pelvic mass) Results Result Diagrams: 10/02/19 20:33 10/02/19 20:33 Abnormal lab results 10/02/19 10/02/19 10/02/19 Range/Units 20:33 20:33 Unknown Hgb 10.0 L (10.1-14.3) gm/dl MCV 75 L (79-97) fl MCH 24 L (28-32) pg RDW 17.5 H (13.2-15.2) % Lymph % (Auto) 5.8 L (13.4-35.0) % [place] % (Auto) 7.6 H (0.0-7.3) % Lymph # 0.6 L (1.2-5.4) K/mm3 Seg Neutrophils % 86.3 H (40.0-70.0) % Seg Neutrophils # 9.1 H (1.8-7.7) K/mm3 Potassium 3.5 L (3.6-5.0) mmol/L Carbon Dioxide 14 L (22-30) mmol/L ALT < 5 L (7-56) units/L Urine WBC (Auto) 7.0 H (0.0-6.0) /HPF All other labs normal. Assessment and Plan - Patient Problems (1) Abdominal pain during Current Visit: No Status: Acute Qualifiers: Trimester: second trimester Qualified Code(s): O26.892 - Other specified related conditions, second trimester; R10.9 - Unspecified abdominal pain Plan to address problem: Admit for IV hydration and antiemetic therapy (2) Hyperemesis gravidarum Current Visit: No Status: Acute (3) Nausea and vomiting during Current Visit: No Status: Acute
[2019-10-03] MEDS ORDERED: THIAMINE 100 MG, FOLIC ACID 1 MG, MULTIPLE VITAMIN INJ, ADULT 10 ML in SODIUM CHLORIDE ... IV ONE (14:00)
--- NOTE | 2019-10-03 15:13 | XRay Report ---
ABDOMEN 1 VIEW(S) 2:59 PM INDICATION / CLINICAL INFORMATION: Constipation, N/V. COMPARISON: Right upper quadrant ultrasound performed yesterday. FINDINGS: TUBES / LINES: None. BOWEL GAS PATTERN: 18 cm rounded mass in the right mid abdomen corresponds to a large fibroid seen on ultrasound. Moderate amount of stool in the right colon. No evidence of bowel obstruction. FREE AIR / EXTRALUMINAL GAS: None seen. ADDITIONAL FINDINGS: Mild lumbar levoscoliosis. IMPRESSION: Large mass in the right mid abdomen corresponds to a known uterine fibroid. Signer Name: Mina Pedro MD Signed: 10/03/2019 3:09 PM Workstation Name: [id number]
[2019-10-03] MEDS ORDERED: METOCLOPRAMIDE 10 MG/2 ML INJ IV PRN (15:20)
[2019-10-03] MEDS ORDERED: MAGNESIUM CITRATE 300 ML ORAL LIQD PO ONE (15:20)
[2019-10-03] MEDS ORDERED: PROMETHAZINE 12.5 MG/10 ML ORAL LIQD PO PRN (15:20)
--- NOTE | 2019-10-03 15:57 | Consultation ---
History of Present Illness Consult date: 10/03/19 Chief complaint: Nausea, vomiting, constipation - History of present illness History of present illness: 34-year-old female, 14 weeks gestation who presented to the emergency room with increased nausea, vomiting, constipation over the last several weeks. The patient has been diagnosed with hyperemesis gravidarum and was started on a Zofran pump by her OB. She stated that over the last 2 weeks, her symptoms have gotten worse despite being on a Zofran pump. She states that she is having intermittent vomiting which is nonbloody and nonbilious. She also states that she has not had a bowel movement or passed flatus in 2 weeks. She feels bloated. She has pressure-like abdominal pain on the right side which does not radiate. Relates this to a known large uterine fibroid. No fevers, chills, chest pain, shortness of breath. She is thirsty. Patient states that she has tried stool softeners to try to have a bowel move ment without success. Surgery consulted by emergency room due to concerns for obstruction. An NG tube was placed, which has already been removed due to patient intolerance. Past History Past Medical History: other (Hyperemesis gravidarum) Past Surgical History: Other (Breast surgery) Social history: single Medications and Allergies Allergies Allergy/AdvReac Type Severity Reaction Status Date / Time No Known Allergies Allergy Verified 09/25/18 15:33 Home Medications Medication Instructions Recorded Confirmed Last Taken Type Ondansetron [Zofran ODT TAB] 8 mg PO Q12HR #14 tab.rapdis 09/25/18 10/03/19 Unknown Rx Ondansetron [Zofran Odt] 4 mg PO Q8HR #20 tab.rapdis 09/01/19 10/03/19 Unknown Rx Acetaminophen [Tylenol] 500 mg PO Q6HR PRN #30 tablet 09/21/19 10/03/19 Unknown Rx Promethazine [Phenergan] 25 mg PO Q6HR PRN #30 tab 09/21/19 10/03/19 Unknown Rx Promethazine [Phenergan] 25 mg [place] Q6HR PRN #15 supp.rect 09/21/19 10/03/19 Unknown Rx Active Meds: Active Medications Docusate Sodium (Colace) 100 mg PO BID CORIE Hydrocortisone Sodium Succinate (Solu-Cortef) 100 mg IV Q8HR CORIE Dextrose/Lactated Ringer's (D5lr) 1,000 mls @ 125 mls/hr IV DIRECT CORIE Last Admin: 10/03/19 07:03 Dose: 125 mls/hr Documented by: Thiamine HCl 100 mg/ Folic Acid 1 mg/ Multivitamins/Minerals 10 ml/ Sodium Chloride 1,011.2 mls @ 250 mls/hr IV ONCE ONE Stop: 10/03/19 18:02 Metoclopramide HCl (Reglan) 10 mg IV Q6H PRN PRN Reason: Nausea And Vomiting Polyethylene Glycol (Miralax 3350) 17 gm PO QDAY CORIE Promethazine HCl (Phenergan) 12.5 mg PO Q6H PRN PRN Reason: Nausea And Vomiting Review of Systems All systems: negative (10 point review of systems performed and negative except for that listed in HPI) Exam Vital Signs Temp Pulse Resp BP Pulse Ox 98.2 F 86 16 119/72 96 10/02/19 15:11 10/02/19 15:11 10/02/19 15:11 10/02/19 15:11 10/02/19 15:11 Narrative exam: Gen.: Awake, alert, oriented 3. No apparent distress ENT: Trachea midline. No lymphadenopathy. No scleral icterus or conjunctival pallor CV: S1, S2 present Respiratory: No audible wheezes Abdomen: Soft, firm mass felt in the right upper abdomen which is mildly tender to palpation. The rest of the abdomen is soft, nondistended. No rebound, rigidity, guarding Extremities: No clubbing, cyanosis, edema Results - Labs 10/02/19 20:33 10/02/19 20:33 Abnormal lab results 10/02/19 10/02/19 10/02/19 Range/Units 20:33 20:33 Unknown Hgb 10.0 L (10.1-14.3) gm/dl MCV 75 L (79-97) fl MCH 24 L (28-32) pg RDW 17.5 H (13.2-15.2) % Lymph % (Auto) 5.8 L (13.4-35.0) % [place] % (Auto) 7.6 H (0.0-7.3) % Lymph # 0.6 L (1.2-5.4) K/mm3 Seg Neutrophils % 86.3 H (40.0-70.0) % Seg Neutrophils # 9.1 H (1.8-7.7) K/mm3 Potassium 3.5 L (3.6-5.0) mmol/L Carbon Dioxide 14 L (22-30) mmol/L ALT < 5 L (7-56) units/L Urine WBC (Auto) 7.0 H (0.0-6.0) /HPF Diabetes panel 10/02/19 Range/Units 20:33 Sodium 138 (137-145) mmol/L Potassium 3.5 L (3.6-5.0) mmol/L Chloride 103.1 (98-107) mmol/L Carbon Dioxide 14 L (22-30) mmol/L BUN 13 (7-17) mg/dL Creatinine 0.8 (0.7-1.2) mg/dL Glucose 95 (65-100) mg/dL Calcium 10.1 (8.4-10.2) mg/dL AST 10 (5-40) units/L ALT < 5 L (7-56) units/L Alkaline Phosphatase 44 (35-129) units/L Total Protein 7.7 D (6.3-8.2) g/dL Albumin 4.0 (3.9-5) g/dL Calcium panel 10/02/19 Range/Units 20:33 Calcium 10.1 (8.4-10.2) mg/dL Albumin 4.0 (3.9-5) g/dL Pituitary panel 10/02/19 Range/Units 20:33 Sodium 138 (137-145) mmol/L Potassium 3.5 L (3.6-5.0) mmol/L Chloride 103.1 (98-107) mmol/L Carbon Dioxide 14 L (22-30) mmol/L BUN 13 (7-17) mg/dL Creatinine 0.8 (0.7-1.2) mg/dL Glucose 95 (65-100) mg/dL Calcium 10.1 (8.4-10.2) mg/dL Adrenal panel 10/02/19 Range/Units 20:33 Sodium 138 (137-145) mmol/L Potassium 3.5 L (3.6-5.0) mmol/L Chloride 103.1 (98-107) mmol/L Carbon Dioxide 14 L (22-30) mmol/L BUN 13 (7-17) mg/dL Creatinine 0.8 (0.7-1.2) mg/dL Glucose 95 (65-100) mg/dL Calcium 10.1 (8.4-10.2) mg/dL Total Bilirubin < 0.20 (0.1-1.2) mg/dL AST 10 (5-40) units/L ALT < 5 L (7-56) units/L Alkaline Phosphatase 44 (35-129) units/L Total Protein 7.7 D (6.3-8.2) g/dL Albumin 4.0 (3.9-5) g/dL - Imaging Abdominal x-ray: report reviewed, image reviewed US - abdomen: report reviewed, image reviewed Assessment and Plan 34-year-old female with 1. Constipation 2. Hyperemesis gravidarum 3. Large right uterine fibroid Pt stable. Upon review of H&P, PE, and Xray, I do not feel she has an obstruction Plan: 1. start clear liquid diet, adv as stef 2. IVF 3. continue zofran pump. will add zofran and phenergan for breakthrough n/v 4. NGT was already removed due to patient intolerance. Output was scant brown fluid. Does not need to be replaced 5. start bowel regimen - dulcolax DC x1, Mag citrate x1, miralax PO daily, colace BID 6. OOB/ambulate Discussed with Dr. Kunz. Thank you for this consultation. Please call with any questions or concerns.
[2019-10-03] MEDS: HYDROCORTISONE SOD SUCC 100 MG/2 ML VIAL IV SCH ×2 (16:31→23:45)
[2019-10-03] MEDS ORDERED: DOCUSATE SODIUM 100 MG/10 ML ORAL LIQD PO SCH (22:00)
[2019-10-04] MEDS: HYDROCORTISONE SOD SUCC 100 MG/2 ML VIAL IV SCH (07:10)
[2019-10-04] MEDS ORDERED: FAMOTIDINE 20 MG/2 ML INJ IV SCH (10:00)
[2019-10-04] MEDS ORDERED: POLYETHYLENE GLYCOL 3350 17 GM POWDER PO SCH (10:00)
[2019-10-04 10:49] VITALS: BP 135/81
--- NOTE | 2019-10-04 13:01 | Progress Note ---
Assessment and Plan - Patient Problems (1) Abdominal pain during Current Visit: No Status: Acute Qualifiers: Trimester: second trimester Qualified Code(s): O26.892 - Other specified related conditions, second trimester; R10.9 - Unspecified abdominal pain Plan to address problem: Patient is clinically improved Discharge home (2) Hyperemesis gravidarum Current Visit: Yes Status: Acute (3) Nausea and vomiting during Current Visit: No Status: Acute Subjective - Subjective Date of service: 10/04/19 Interval history: The patient reports feeling better today. She has had positive bowel movements with relief in her symptoms. KUB demonstrated evidence of retained stool no perforation was noted. Patient is tolerating her diet. Patient reports: no new complaints Objective - Vital Signs Vital Signs: Vital Signs - 12hr 10/04/19 10/04/19 04:36 07:55 Temperature 98.5 F 97.6 F Pulse Rate 82 82 Respiratory 20 18 Rate Blood Pressure 134/79 135/81 O2 Sat by Pulse 96 100 Oximetry - Labs Labs: Abnormal Labs 10/02/19 10/02/19 10/02/19 20:33 20:33 Unknown Hgb 10.0 L MCV 75 L MCH 24 L RDW 17.5 H Lymph % (Auto) 5.8 L [place] % (Auto) 7.6 H Lymph # 0.6 L Seg Neutrophils % 86.3 H Seg Neutrophils # 9.1 H Potassium 3.5 L Carbon Dioxide 14 L ALT < 5 L Urine WBC (Auto) 7.0 H
--- NOTE | 2019-10-04 13:03 | Discharge Summary ---
Providers - Providers Date of Admission: 10/03/19 03:10 Date of discharge: 10/04/19 Attending physician: JOSE WILKINS 10/02/19 23:58 Consult to Physician [CONS] Routine Comment: Consulting Provider: CHU ESTRADA Physician Instructions: Reason For Exam: n/v. constipation. poss sbo Primary care physician: [employer] Hospitalization Reason for admission: other Discharge diagnosis: other (Hyperemesis) Hospital course: The patient was admitted secondary to nausea vomiting. She reports not having a bowel movement for 2 weeks. KUB was performed that demonstrated evidence of retained stool. The patient was medicated to facilitate a bowel movement which she had significant improvement in her symptoms. Condition at discharge: Good Disposition: DC-01 TO HOME OR SELFCARE - Discharge Diagnoses (1) Abdominal pain during Status: Acute Qualifiers: Trimester: second trimester Qualified Code(s): O26.892 - Other specified related conditions, second trimester; R10.9 - Unspecified abdominal pain (2) Hyperemesis gravidarum Status: Acute (3) Nausea and vomiting during Status: Acute Plan - Provider Discharge Summary Diet: routine Instructions: routine Additional instructions: [] Smoking cessation referral if applicable(refer to patient education folder for contact #) [] Refer to [facility]'s [facility] Booklet Call your doctor immediately for: * Fever > 100.5 * Heavy vaginal bleeding ( >1 pad per hour) * Severe persistent headache * Shortness of breath * Reddened, hot, painful area to leg or breast * Drainage or odor from incision. * Keep incision clean and dry at all times and follow doctor's instructions regarding bathing/showering - Follow up plan
== END 2019-10-04 13:14 | disposition home or self-care (01) ==
LOC: ED 14:49 → OB 10-03 03:10
PROVIDERS: ADMIT Internal Medicine; ATTEND Obstetrics & Gynecology
DX: O21.0 Mild hyperemesis gravidarum (principal); O99.612 Diseases of the digestive system complicating pregnancy, second trimester; K59.00 Constipation, unspecified; O34.12 Maternal care for benign tumor of corpus uteri, second trimester; D25.9 Leiomyoma of uterus, unspecified; O99.512 Diseases of the respiratory system complicating pregnancy, second trimester; J45.909 Unspecified asthma, uncomplicated; Z79.899 Other long term (current) drug therapy; Z3A.14 14 weeks gestation of pregnancy
CPT/HCPCS: 36415; 74018; 76705; 80053; 81001; 85025; 96361; 96365; 96366; 96375; 96376; 99284; G0378; J1720; J2765; J3411; J7030; J7121

== ENCOUNTER 2021-05-04 10:47 | Emergency (ER) | payer BC ==
[2021-05-04 11:30] VITALS: BP 149/86
[2021-05-04] MEDS ORDERED: dexAMETHasone 4 MG/ML VIAL IM ONE (11:59)
[2021-05-04] MEDS ORDERED: LIDOCAINE-MPF (1%) 10 MG/1 ML VIAL 5 ML INFILTRATI ONE (12:00)
--- NOTE | 2021-05-04 12:05 | Emergency Department Report ---
Minor Respiratory - HPI Chief Complaint: Upper Respiratory Infection Stated Complaint: SWOLLEN NODES/NECK PAIN Duration: 2 Days Pain Location: Other Severity: mild Minor Respiratory: Yes Able to Tolerate Fluids, No Rhinorrhea, No Sore Throat, No Ear Pain, No Cough, No Sick Contacts, No Hemoptysis, No Chest Pain, No Shortness of Breath, No Fever Other History: 35 yo comes to er with swollen lymph nodes. She states it started several days ago but just gets worse. ABC intact. VSS. taking PO. no ear or dental pain. no ludwigs. no abscess. isolated left ant chain swelling. pt is nad. denies hx of same. no fever or chills. no systemic symptoms. no fam hx blood/lymph ca ED Review of Systems ROS: Stated complaint: SWOLLEN NODES/NECK PAIN Other details as noted in HPI Comment: All other systems reviewed and negative ED Past Medical Hx - Past Medical History Previous Medical History?: Yes Hx Hypertension: No Hx Congestive Heart Failure: No Hx Diabetes: No Hx GERD: Yes Hx Liver Disease: No Hx Renal Disease: No Hx Headaches / Migraines: Yes (Migraines) Hx Asthma: Yes (last inhaler use 1.5yrs ago) Hx HIV: No Additional medical history: bronchitis / aseptic meningitis - Surgical History Past Surgical History?: Yes Hx Breast Surgery: Yes (Reduction) Additional Surgical History: breast reduction 2003/ D &C - Family History Family history: no significant - Social History Smoking Status: Former Smoker Substance Use Type: None - Medications Home Medications: Home Medications Medication Instructions Recorded Confirmed Last Taken Type OXYCODONE hcl [Oxycodone] 15 mg PO Q6H 10/08/19 10/08/19 Unknown History Ferrous Sulfate [Feosol 325 MG tab] 325 mg PO BID #60 tablet 10/09/19 Unknown Rx Ibuprofen [Motrin] 800 mg PO Q8HR PRN #30 tablet 10/09/19 Unknown Rx HYDROcodone/APAP 7.5-325 [[place] 1 each PO Q6HR PRN #15 tablet 10/15/19 Unknown Rx 7.5/325] Ibuprofen [Motrin] 800 mg PO Q8HR PRN #30 tablet 10/15/19 Unknown Rx Ondansetron [Zofran Odt] 4 mg PO Q4HR PRN #20 tab.rapdis 10/15/19 Unknown Rx cephALEXin [Keflex] 500 mg PO Q12HR #20 cap 05/04/21 Unknown Rx Minor Respiratory Exam - Exam General: Vital signs noted. No distress. Alert and acting appropriately. HEENT: Yes Moist Mucous Membranes, No Pharyngeal Erythema, No Pharyngeal Exudates, No Rhinorrhea, No Conjuctival Injection, No Frontal Tenderness, No Maxillary Tenderness Ear: Neither TM Bulge, Neither TM Erythema, Neither EAC Pain, Neither EAC Discharge Neck: Yes Adenopathy (left ant chain), Yes Supple Lungs: Yes Good Air Exchange, No Wheezes, No Ronchi, No Stridor, No Cough, No Labored Respirations, No Retractions, No Use of Accessory Muscles, No Other Abnormal Lung Sounds Heart: Yes Regular, No Murmur Abdomen: Yes Normal Bowel Sounds, No Tenderness, No Peritoneal Signs Skin: No Rash, No Edema Neurologic: Alert and oriented, no deficits. Musculoskeletal: Unremarkable. ED Course Vital Signs 05/04/21 05/04/21 11:27 11:29 Temperature 98.8 F 98.8 F Pulse Rate 62 Respiratory 18 Rate Blood Pressure 149/86 [Left] O2 Sat by Pulse 100 Oximetry ED Medical Decision Making - Medical Decision Making isolated lymphodenopathy with no associated signs or symptoms will treat with keflex x 10 days pt knows at that time she needs to see pcp for recheck on dc exam pt is ambulatory, taking po, in nad with no complaints Vital Signs 05/04/21 05/04/21 11:27 11:29 Temperature 98.8 F 98.8 F Pulse Rate 62 Respiratory 18 Rate Blood Pressure 149/86 [Left] O2 Sat by Pulse 100 Oximetry dc home with dc plan of care including diet/activity meds and follow up. PCP referral given. - Differential Diagnosis lymphadenopathy Critical care attestation.: If time is entered above; I have spent that time in minutes in the direct care of this critically ill patient, excluding procedure time. ED Disposition Clinical Impression: Lymph node enlargement Disposition: 01 HOME / SELF CARE / HOMELESS Is pt being admited?: No Condition: Stable Additional Instructions: MEDS ORDERED STAY WELL HYDRATED MOTRIN OR TYLENOL FOR PAIN FOLLOW UP WITH PCP AFTER YOU COMPLETE MEDS REFERRAL BELOW Prescriptions: cephALEXin [Keflex] 500 mg PO Q12HR #20 cap Referrals: MARSHALL WOODWARD MD [Staff Physician] - 3-5 Days Time of Disposition: 12:04
== END 2021-05-04 12:18 | disposition home or self-care (01) ==
LOC: ED 10:47
DX: R59.9 Enlarged lymph nodes, unspecified (principal); K21.9 Gastro-esophageal reflux disease without esophagitis; J45.909 Unspecified asthma, uncomplicated; Z98.890 Other specified postprocedural states
CPT/HCPCS: 96372; 99282; J0696; J1100; J3490

== ENCOUNTER 2021-06-09 18:00 | Emergency (ER) | payer BC ==
[2021-06-09 20:24] LABS: Basophils % (Auto) 0.4 % (0.0-1.8); Eosinophils # (Auto) 0.1 K/mm3 (0.0-0.4); Eosinophils % (Auto) 2.7 % (0.0-4.3); Hemoglobin 10.3 gm/dl (10.1-14.3); Lymphocytes # (Auto) 1.2 K/mm3 (1.2-5.4); Lymphocytes % (Auto) 37.8 % (13.4-35.0); Mean Corpuscular HGB Conc 31 % (30-34); Monocytes # (Auto) 0.3 K/mm3 (0.0-0.8); Monocytes % (Auto) 10.4 % (0.0-7.3); Platelet Count 168 K/mm3 (140-440); Red Blood Count 4.74 M/mm3 (3.65-5.03); Red Cell Distribution Width 18.2 % (13.2-15.2)
[2021-06-09 20:30] LABS: Mean Corpuscular Volume 70 fl (79-97)
[2021-06-09 20:40] LABS: Bacteria,Urine 1+ /HPF (Negative); Bilirubin,Urine NEG (Negative); Blood,Urine NEG (Negative); Color,Urine Yellow (Yellow); Mucus,Urine 3+ /HPF
[2021-06-09 22:36] LABS: Alanine Aminotransferase 18 units/L (7-56); Albumin 4.3 g/dL (3.9-5); BUN/Creatinine Ratio 15; Blood Urea Nitrogen 12 mg/dL (7-17); Hemolysis Index 63
[2021-06-10] MEDS ORDERED: MORPHINE 4 MG/1 ML INJ IV ONE (02:36)
[2021-06-10] MEDS ORDERED: FAMOTIDINE 20 MG/2 ML INJ IV ONE (02:36)
[2021-06-10] MEDS ORDERED: ONDANSETRON 4 MG/2 ML INJ IV ONE (02:36)
--- NOTE | 2021-06-10 05:50 | Emergency Department Report ---
ED Abdominal Pain HPI - General Chief Complaint: Abdominal Pain Stated Complaint: AB PAIN/SINUS PRESSURE Source: patient Mode of arrival: Ambulatory Limitations: No Limitations - History of Present Illness Initial Comments: Patient is a 35-year-old female with history of GERD, asthma and migraine headaches who presents to the ED with acute onset persistent suprapubic pain with intractable nausea and vomiting for the last 3 months intermittently, worse in the last 1 week. Patient states that she has not been able to keep anything down in the last 3 days because of nausea and vomiting. Patient denies dizziness, syncope, dysuria, urinary frequency and urgency, chest pain, shortness of breath, fever, chills, vaginal bleeding, vaginal discharge, low back pain, cough, sore throat, headache or lightheadedness. MD Complaint: abdominal pain (suprapubic pain), other (nausea and vomiting) -: Gradual, month(s) (3) Location: suprapubic Radiation: none Migration to: no migration Severity: moderate Severity scale (0 -10): 6 Quality: aching, sharp Consistency: constant Improves With: nothing Worsens With: nothing Associated Symptoms: nausea, vomiting. denies: denies other symptoms, diarrhea, fever, chills, constipation, hematemesis, hematochezia, melena, hematuria, anorexia, syncope - Related Data Home Medications Medication Instructions Recorded Confirmed Last Taken OXYCODONE hcl [Oxycodone] 15 mg PO Q6H 10/08/19 10/08/19 Unknown Previous Rx's Medication Instructions Recorded Last Taken Type Ferrous Sulfate [Feosol 325 MG tab] 325 mg PO BID #60 tablet 10/09/19 Unknown Rx HYDROcodone/APAP 7.5-325 [[place] 1 each PO Q6HR PRN #15 tablet 10/15/19 Unknown Rx 7.5/325] Ibuprofen [Motrin] 800 mg PO Q8HR PRN #30 tablet 10/15/19 Unknown Rx Ondansetron [Zofran Odt] 4 mg PO Q4HR PRN #20 tab.rapdis 10/15/19 Unknown Rx cephALEXin [Keflex] 500 mg PO Q12HR #20 cap 05/04/21 Unknown Rx Amoxicillin/Potassium Clav 1 each PO Q12H #20 tab 06/10/21 Unknown Rx [Augmentin 875-125 Tablet] Dicyclomine [Bentyl] 20 mg PO Q6H PRN #24 tablet 06/10/21 Unknown Rx Famotidine [Pepcid] 20 mg PO BID #60 tablet 06/10/21 Unknown Rx Ibuprofen [Motrin 800 MG tab] 800 mg PO Q8HR PRN #30 tablet 06/10/21 Unknown Rx Ondansetron [Zofran Odt] 4 mg PO Q8HR PRN #20 tab.rapdis 06/10/21 Unknown Rx predniSONE [Deltasone] 40 mg PO QDAY #12 tab 06/10/21 Unknown Rx Allergies Allergy/AdvReac Type Severity Reaction Status Date / Time No Known Allergies Allergy Verified 10/15/19 16:45 ED Review of Systems ROS: Stated complaint: AB PAIN/SINUS PRESSURE Other details as noted in HPI Constitutional: denies: chills, fever Eyes: denies: eye pain, eye discharge, vision change ENT: denies: ear pain, throat pain Respiratory: denies: cough, shortness of breath, wheezing Cardiovascular: denies: chest pain, palpitations Endocrine: no symptoms reported Gastrointestinal: abdominal pain, nausea, vomiting. denies: diarrhea Genitourinary: denies: urgency, dysuria, discharge Musculoskeletal: denies: back pain, joint swelling, arthralgia Skin: denies: rash, lesions Neurological: denies: headache, weakness, paresthesias Psychiatric: denies: anxiety, depression Hematological/Lymphatic: denies: easy bleeding, easy bruising ED Past Medical Hx - Past Medical History Hx Hypertension: No Hx Congestive Heart Failure: No Hx Diabetes: No Hx GERD: Yes Hx Liver Disease: No Hx Renal Disease: No Hx Headaches / Migraines: Yes (Migraines) Hx Asthma: Yes (last inhaler use 1.5yrs ago) Hx HIV: No Additional medical history: bronchitis / aseptic meningitis - Surgical History Hx Breast Surgery: Yes (Reduction) Additional Surgical History: breast reduction 2004/ D &C - Social History Smoking Status: Former Smoker Substance Use Type: None - Medications Home Medications: Home Medications Medication Instructions Recorded Confirmed Last Taken Type OXYCODONE hcl [Oxycodone] 15 mg PO Q6H 10/08/19 10/08/19 Unknown History Ferrous Sulfate [Feosol 325 MG tab] 325 mg PO BID #60 tablet 10/09/19 Unknown Rx HYDROcodone/APAP 7.5-325 [[place] 1 each PO Q6HR PRN #15 tablet 10/15/19 Unknown Rx 7.5/325] Ibuprofen [Motrin] 800 mg PO Q8HR PRN #30 tablet 10/15/19 Unknown Rx Ondansetron [Zofran Odt] 4 mg PO Q4HR PRN #20 tab.rapdis 10/15/19 Unknown Rx cephALEXin [Keflex] 500 mg PO Q12HR #20 cap 05/04/21 Unknown Rx Amoxicillin/Potassium Clav 1 each PO Q12H #20 tab 06/10/21 Unknown Rx [Augmentin 875-125 Tablet] Dicyclomine [Bentyl] 20 mg PO Q6H PRN #24 tablet 06/10/21 Unknown Rx Famotidine [Pepcid] 20 mg PO BID #60 tablet 06/10/21 Unknown Rx Ibuprofen [Motrin 800 MG tab] 800 mg PO Q8HR PRN #30 tablet 06/10/21 Unknown Rx Ondansetron [Zofran Odt] 4 mg PO Q8HR PRN #20 tab.rapdis 06/10/21 Unknown Rx predniSONE [Deltasone] 40 mg PO QDAY #12 tab 06/10/21 Unknown Rx ED Physical Exam - General Limitations: No Limitations General appearance: alert, in no apparent distress - Head Head exam: Present: atraumatic, normocephalic, normal inspection - Eye Eye exam: Present: normal appearance, PERRL, EOMI Pupils: Present: normal accommodation - ENT ENT exam: Present: normal exam, normal orophraynx, mucous membranes moist, TM's normal bilaterally, normal external ear exam - Neck Neck exam: Present: normal inspection, full ROM. Absent: tenderness - Respiratory Respiratory exam: Present: normal lung sounds bilaterally. Absent: respiratory distress, wheezes, rales, rhonchi, chest wall tenderness, prolonged expiratory - Cardiovascular Cardiovascular Exam: Present: regular rate, normal rhythm, normal heart sounds. Absent: systolic murmur, diastolic murmur, rubs, gallop - GI/Abdominal GI/Abdominal exam: Present: soft, tenderness (Palpable suprapubic tenderness), normal bowel sounds. Absent: guarding, rebound, hyperactive bowel sounds, hypoactive bowel sounds - Bi-manual exam: Present: other (Pelvic exam deferred at this time) - Extremities Exam Extremities exam: Present: normal inspection, full ROM, normal capillary refill - Back Exam Back exam: Present: normal inspection, full ROM. Absent: tenderness, CVA tenderness (R), CVA tenderness (L), muscle spasm, vertebral tenderness - Neurological Exam Neurological exam: Present: alert, oriented X3, CN II-XII intact, normal gait, reflexes normal - Psychiatric Psychiatric exam: Present: normal affect, normal mood - Skin Skin exam: Present: warm, dry, intact, normal color. Absent: rash ED Course Vital Signs 06/09/21 06/10/21 06/10/21 19:56 03: 06:13 Temperature 98.6 F Pulse Rate 72 74 Respiratory 18 14 12 Rate Blood Pressure 141/83 Blood Pressure 144/82 [Right] O2 Sat by Pulse 98 100 Oximetry ED Medical Decision Making - Lab Data Result diagrams: 06/09/21 20:10 06/09/21 20:10 - Radiology Data Radiology results: report reviewed, image reviewed The abdomen pelvis CT scan with contrast showed no acute findings to suggest etiology of abdominal pain - Medical Decision Making This is a 35-year-old female with history of GERD, asthma and migraine headaches who presents to the ED with acute onset persistent suprapubic pain with intractable nausea and vomiting for the last 3 months intermittently, worse in the last 1 week. Patient states that she has not been able to keep anything down in the last 3 days because of nausea and vomiting. In the ED, patient is alert and oriented x3 and is not in distress. Patient was treated for pain in the ED and also given antiemetics and normal saline 1 L IV bolus x1. Lab test results were reviewed and are all nonactionable. Abdomen pelvis CT scan with contrast showed no acute abnormalities. On reevaluation, patient's pain is well controlled medication. Patient was discharged home on medications and advised to follow-up with her primary care physician in 5 to 7 days for reevaluation or return to the ED immediately if symptoms get worse. - Differential Diagnosis Appendicitis; colitis; GERD; gastroenteritis; UTI; ovarian cyst Critical care attestation.: If time is entered above; I have spent that time in minutes in the direct care of this critically ill patient, excluding procedure time. ED Disposition Clinical Impression: Abdominal pain, bilateral lower quadrant, Nausea and vomiting in adult patient, Acute upper respiratory infection Acute frontal sinusitis Qualifiers: Recurrence: non-recurrent Qualified Code(s): J01.10 - Acute frontal sinusitis, unspecified Disposition: 01 HOME / SELF CARE / HOMELESS Is pt being admited?: No Does the pt Need Aspirin: No Condition: Stable Instructions: Sinusitis, Adult, [id number], Nausea and Vomiting, Adult, [id number], Abdominal Pain, Adult, [id number], Upper Respiratory Infection, Adult, [id number], Abdominal Pain (ED) Additional Instructions: All lab test results were reviewed and are all nonactionable. The abdomen pelvis CT scan with contrast showed no acute abnormalities. Therefore take medication with food, drink plenty of fluids and follow-up with your primary care physician in 7 to 10 days for reevaluation. Return to the ED immediately if symptoms get worse. Prescriptions: Amoxicillin/Potassium Clav [Augmentin 875-125 Tablet] 1 each PO Q12H #20 tab Dicyclomine [Bentyl] 20 mg PO Q6H PRN #24 tablet PRN Reason: Abdominal pain predniSONE [Deltasone] 40 mg PO QDAY #12 tab Ibuprofen [Motrin 800 MG tab] 800 mg PO Q8HR PRN #30 tablet PRN Reason: Pain, Moderate (4-6) Famotidine [Pepcid] 20 mg PO BID #60 tablet Ondansetron [Zofran Odt] 4 mg PO Q8HR PRN #20 tab.rapdis PRN Reason: Nausea Referrals: SAMMY SMALLWOOD MD [Staff Physician] - 3-5 Days Time of Disposition: 05:47 Print Language: PERSIAN
[2021-06-10 06:13] VITALS: BP 144/82
--- NOTE | 2021-06-10 11:32 | Cat Scan Report ---
CT ABDOMEN AND PELVIS WITH CONTRAST INDICATION / CLINICAL INFORMATION: abdominal pain. TECHNIQUE: Axial CT images were obtained through the abdomen and pelvis after IV contrast. All CT sc ans at this location are performed using CT dose reduction for ALARA by means of automated exposure c ontrol. COMPARISON: None available. FINDINGS: LOWER CHEST: No significant abnormality of the imaged chest. LIVER: No significant abnormality. GALLBLADDER: No significant abnormality. BILE DUCTS: No significant abnormality. SPLEEN: No significant abnormality. PANCREAS: No significant abnormality. ADRENALS: No significant abnormality. RIGHT KIDNEY / URETER: No significant abnormality. LEFT KIDNEY / URETER: No significant abnormality. STOMACH / DUODENUM / SMALL BOWEL: No significant abnormality. COLON: No significant abnormality. APPENDIX: No significant abnormality. PERITONEUM: No free air or free fluid are present within the abdomen or pelvis. LYMPH NODES: Borderline to minimally enlarged mesenteric lymph nodes, nonspecific finding. AORTA / ARTERIES: No significant abnormality. IVC / VEINS: No significant abnormality. URINARY BLADDER: No significant abnormality. REPRODUCTIVE ORGANS: No significant abnormality. ADDITIONAL ABDOMINAL/PELVIC FINDINGS: None. SKELETAL SYSTEM: No significant abnormality. IMPRESSION: 1. No specific imaging findings to suggest etiology of abdominal pain. Signer Name: Vazquez Barry II, MD Signed: 06/10/2021 4:40 AM Workstation Name: [id number]
== END 2021-06-10 06:13 | disposition home or self-care (01) ==
LOC: ED 18:00
DX: J06.9 Acute upper respiratory infection, unspecified (principal); R10.30 Lower abdominal pain, unspecified; R11.2 Nausea with vomiting, unspecified; J01.10 Acute frontal sinusitis, unspecified; K21.9 Gastro-esophageal reflux disease without esophagitis; G43.909 Migraine, unspecified, not intractable, without status migrainosus; J45.909 Unspecified asthma, uncomplicated; Z98.890 Other specified postprocedural states; Z87.891 Personal history of nicotine dependence
CPT/HCPCS: 36415; 74177; 80053; 81001; 84703; 85025; 96374; 96375; 99284; J2270; J2405; J3490; Q9967